=== PATIENT | female | born 1965 | race Caucasian/White ===

== ENCOUNTER → 2019-09-26 14:30 | Outpatient (CLI) | payer OTHER, SELFPAY ==
--- NOTE | ~2019-09-26 | DEXA_ITS ---
Bone Density Report Name: Rebekah Contreras Age: 54 Sex: Female Ethnicity: White Date of : 1965 Indication: postmenopausal; screening for osteoporosis; height loss; hysterectomy; rheumatoid arthritis; Referring Provider: NAYLA, VICTORIA Study: Bone densitometry was performed. Exam Date: September 26, 2019 Accession number: [id number] Bone Density: Region BMD T-score Z-score Classification AP Spine (L1-L4) 1.069 0.2 1.3 Normal Femoral Neck (Left) 0.847 0.0 1.0 Normal Total Hip (Left) 0.995 0.4 1.1 Normal Femoral Neck (Right) 0.862 0.1 1.2 Normal Total Hip (Right) 1.008 0.5 1.2 Normal Total Hip Mean 1.002 0.5 1.2 Normal World Health Organization criteria for BMD impression classify patients as: Normal (T-score at or above -1.0), Osteopenia (T-score between -1.0 and -2.5), or Osteoporosis (T-score at or below -2.5). 10-year Fracture Risk: FRAX not reported because: All T-scores for Spine Total, Hip Total, Femoral Neck at or above -1.0 Previous Exams: Region Exam Age BMD T-score BMD Change BMD Change Date g/cm2 vs Baseline vs Previous AP Spine(L1-L4) 09/26/2019 54 1.069 0.2 -0.095* -0.095* 09/19/2016 51 1.164 1.1 Total Hip(Left) 09/26/2019 54 0.995 0.4 -0.076* -0.076* 09/19/2016 51 1.071 1.1 Total Hip(Right) 09/26/2019 54 1.008 0.5 -0.071* -0.071* 09/19/2016 51 1.079 1.1 *Denotes significance at 95% confidence level, LSC for AP Spine = 0.022 g/cm2, LSC for Total Hip = 0.027 g/cm2 Clinical Information Provided by Patient: Has rheumatoid arthritis Has used the following medications: Vitamin D Has the following medical conditions: Hysterectomy Patient maximum height was 68.0 Menopause Age: 29 Drinks caffeinated beverages Onset of menses at age 12 Number of children 2 Impression: The patient has normal bone mass. The BMD for the AP Spine(L1-L4) decreased, changing by -0.095 since the last DXA exam. The BMD for the Total Hip(Left) decreased, changing by -0.076 since the last DXA exam. The BMD for the Total Hip(Right) decreased, changing by -0.071 since the last DXA exam. Discussion: BONE DENSITY IS ABOVE THE MINIMUM DESIRABLE LEVEL AT ALL SKELETAL SITES TESTED. This patient?s bone mineral density is above the minimum desirable level (T-score -1.0 or better) at all sites measured. The patient should follow a healthful lifestyle (good nutrition with adequate calcium
== END ==
PROVIDERS: PCP Physician Assistant; Visit Provider Nurse Practitioner
DX: Z78.0 Asymptomatic menopausal state (principal)
CPT/HCPCS: 77080

== ENCOUNTER 2019-11-27 16:33 | Outpatient (CLI) | payer OTHER, SELFPAY ==
--- NOTE | ~2019-11-27 | XR_ITS ---
EXAMINATION: XR chest 2V, XR ribs RT 2V EXAM DATE: 11/27/2019 17:11 INDICATION: Right lower rib pain. TECHNIQUE: Frontal projection of the upper right ribs, frontal projection of the lower right ribs, ob lique projection of the right ribs, frontal and lateral chest x-ray(s) for interpretation. Comparison is made to prior examination from 03/10/2017. FINDINGS: There are no displaced acute right rib fractures identified. There is no soft tissue abno rmality seen. No confluent consolidation, pneumothorax or pleural effusion suspected. Cardiomediastin al silhouette is normal. There are cholecystectomy clips. IMPRESSION: Unremarkable chest x-ray, right rib exam. Reviewed, dictated and finalized at location A. IMPRESSION: Unremarkable chest x-ray, right rib exam.
--- NOTE | ~2019-11-27 | XR_ITS ---
EXAMINATION: XR abdomen/kub 1V EXAM DATE: 11/27/2019 17:11 INDICATION: Right flank pain. TECHNIQUE: Frontal projection(s) of the abdomen for interpretation. Comparison is made to prior exami nation from 03/05/2009. FINDINGS: There is expected amount of colonic stool and gas. No small bowel dilation, nonobstructiv e bowel gas pattern. Calcifications in the pelvis are believed to be phleboliths. There is no orga nomegaly suspected. The bones are unremarkable. There are cholecystectomy clips. IMPRESSION: Unremarkable abdomen x-ray exam. Reviewed, dictated and finalized at location A.
== END 2019-11-27 16:34 | disposition home or self-care (01) ==
LOC: ANHIMG 16:44
PROVIDERS: PCP Physician Assistant; Visit Provider Physician Assistant
DX: R07.81 Pleurodynia (principal)
CPT/HCPCS: 71046; 71100; 74018

== ENCOUNTER 2020-02-15 17:05 | Outpatient (CLI) | payer OTHER, SELFPAY ==
--- NOTE | ~2020-02-15 | XR_ITS ---
XR hip BI 2V w AP pelvis 02/15/2020 17:53 Indication: Rheumatoid arthritis. Hip pain. Procedure: 3 views of each hip including AP pelvis Comparison: No prior studies for comparison. Findings: Mild symmetric osteoarthritis of the hips. No erosive changes. No fracture or traumatic mal alignment. Mild levoscoliosis of the lumbar spine. There is lower lumbar spondylosis. Sacral foramen are symmetric. Impression: 1: Bilateral symmetric osteoarthritis of the hips. Reviewed, dictated and finalized at location A. Impression: 1: Bilateral symmetric osteoarthritis of the hips.
--- NOTE | ~2020-02-15 | XR_ITS ---
XR hand BI arthritis min 3V 02/15/2020 17:52 INDICATION: Rheumatoid arthritis PROCEDURE: 4 views of each hand COMPARISON: No prior studies for comparison. FINDINGS: Fracture, dislocation or subluxation is not identified. No significant erosive change. The soft tissues appear within normal limits. No foreign bodies are identified. IMPRESSION: 1: NO SIGNIFICANT BONE OR JOINT ABNORMALITY IDENTIFIED. Reviewed, dictated and finalized at location A.
--- NOTE | ~2020-02-15 | XR_ITS ---
XR foot RT standing 2V, XR foot LT standing 2V 02/15/2020 17:53 (accession [id number]), 02/15/2020 17:52 (accession [id number]) Indication: Rheumatoid arthritis. Procedure: 2 views each foot Comparison: No prior studies for comparison. Findings: There is a small degenerative calcaneal enthesophyte at the plantar surface on the right. N o fracture, subluxation or dislocation. No erosive changes. Normal anatomic alignment. No focal soft tissue abnormality. No radiopaque foreign bodies. Impression: 1: No significant bone or joint abnormality. Reviewed, dictated and finalized at location A. Impression: 1: No significant bone or joint abnormality. Impression: 1: No significant bone or joint abnormality.
== END 2020-02-15 17:06 | disposition home or self-care (01) ==
LOC: ANHIMG 17:12
PROVIDERS: PCP Physician Assistant; Visit Provider Internal Medicine
DX: M06.09 Rheumatoid arthritis without rheumatoid factor, multiple sites (principal); M16.0 Bilateral primary osteoarthritis of hip
CPT/HCPCS: 73130; 73521; 73620

== ENCOUNTER 2020-02-19 07:07 | Outpatient (CLI) | payer OTHER, SELFPAY ==
[2020-02-19 07:38] LABS: Hematocrit 43.2 % (37.0-47.0); Hemoglobin 14.4 g/dL (12.0-15.0); Mean Corpuscular HGB Conc 33.3 g/dl (32-36); Mean Corpuscular Hemoglobin 29.4 pg (26-34); Mean Corpuscular Volume 88.3 fl (80-100); Mean Platelet Volume 9.2 fl (7.4-10.4); Platelet Count Result 276 k/mm3 (150-375); Red Blood Count 4.89 M/mm3 (4.2-5.4); White Blood Count 4.5 K/mm3 (4.5-10.0)
[2020-02-19 07:51] LABS: Alanine Aminotransferase 28 U/L (4-35); Albumin Level 4.4 g/dL (3.5-5.1); Alkaline Phosphatase 113 U/L (38-126); Aspartate Amino Transferase 26 U/L (14-36); Bilirubin,Total 0.4 mg/dL (0.2-1.3); Blood Urea Nitrogen 17 mg/dL (7-17); CRP < 0.5 mg/dL (<1.0); Calcium 10.1 mg/dL (8.4-10.2); Carbon Dioxide 27 mmol/L (22-30); Chloride 105 mmol/L (98-107); Estimated Glomerular Filt Rate > 60; Glucose 128 mg/dL (65-105); Sodium 140 mmol/L (137-145)
[2020-02-19 07:51] LABS: Add Urine Microscopic? YES; Appearance Urine Clear (Clear); Bilirubin Urine Negative (Negative); Blood Urine Trace-lysed (Negative); Color Urine Yellow (Yellow); Glucose Urine UA Negative (Negative); Ketones Urine Negative (Negative); Leukocyte Esterase Ur Negative LEU/UL (Negative); Nitrate Urine Negative (Negative); Protein Urine Negative (Negative); Specific Grav Ur >= 1.030 (1.001-1.035); Urobilinogen Urine 0.2 mg/dL (<2.0); pH Urine 5.5 (5.0-9.0)
[2020-02-19 07:53] LABS: Rheumatoid Factor < 8.6 IU/ML (<12)
[2020-02-19 07:59] LABS: Bacteria Urine Trace /hpf; Calcium Oxalate Crystals Urine Present /hpf; Mucus Urine Rare /lpf; RBC Urine 0-2 /hpf (0-2); Squamous Epithelial Cell Urine Rare /hpf (Few); WBC Urine 0-3 /hpf
[2020-02-19 08:35] LABS: Hepatitis B Surface Antigen Negative (Negative)
[2020-02-19 09:05] LABS: Hepatitis B Surface Anti Res Indeterminate; Hepatitis C Virus Antibody Negative (Negative)
[2020-02-22 09:37] LABS: ANA Cascade Screen Negative (Negative)
[2020-02-22 11:13] LABS: Anti Cyclic Citrullinated Pept <16 Units (<20)
[2020-02-22 21:34] LABS: NIL 0.02 IU/mL; Quantiferon TB Plus, 1T NEGATIVE (NEGATIVE); TB1-NIL 0.01 IU/mL; TB2-NIL 0.01 IU/mL
== END 2020-02-19 07:08 | disposition home or self-care (01) ==
PROVIDERS: PCP Physician Assistant; Visit Provider Internal Medicine
DX: M06.09 Rheumatoid arthritis without rheumatoid factor, multiple sites (principal); M19.90 Unspecified osteoarthritis, unspecified site
CPT/HCPCS: 36415; 80053; 81001; 85027; 86038; 86140; 86200; 86430; 86480; 86706; 86803; 87340

== ENCOUNTER 2020-02-19 17:11 | Outpatient (CLI) | payer OTHER, SELFPAY ==
[2020-02-23 03:17] LABS: Lupus dRVVT 1:1 Mix Interpreta Not Indicated; Lupus dRVVT Screen 27 sec (<=45); PTT-LA Screen 31 sec (<=40)
== END 2020-02-19 17:12 | disposition home or self-care (01) ==
PROVIDERS: PCP Physician Assistant; Visit Provider Internal Medicine
DX: M06.09 Rheumatoid arthritis without rheumatoid factor, multiple sites (principal)
CPT/HCPCS: 36415; 85613; 85730

== ENCOUNTER 2020-05-25 10:36 | Outpatient (CLI) | payer OTHER, SELFPAY ==
--- NOTE | ~2020-05-25 | CT_ITS ---
EXAMINATION:CT chest high resolution wo ms DATE: 05/25/2020 11:00 INDICATION: Dyspnea on exertion. TECHNIQUE: Computed tomography (CT) of the chest was performed without intravenous contrast. Automate d exposure control and iterative reconstruction technique were employed. The dose-length product (DLP ) was 236.91 mGy-cm. COMPARISON: CT abdomen and pelvis 11/23/2016 FINDINGS: The lungs demonstrate minimal atelectasis. There is a 3 mm nodule in right upper lobe. Ther e is a 5 mm nodule at minor fissure. No bronchiectasis or honeycombing. No pleural effusion. The hear t size is normal. No pericardial effusion. There is a small sliding hiatal hernia. There are changes of cholecystectomy. There is mild thoracic spondylosis. IMPRESSION: 1. Small pulmonary nodules, likely benign. 2. Small sliding hiatal hernia. Reviewed, dictated and finalized at location A. 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
== END 2020-05-25 10:37 | disposition home or self-care (01) ==
PROVIDERS: PCP Physician Assistant; Visit Provider Internal Medicine Cardiovascular Disease
DX: R06.09 Other forms of dyspnea (principal); R91.8 Other nonspecific abnormal finding of lung field; K44.9 Diaphragmatic hernia without obstruction or gangrene; M47.814 Spondylosis without myelopathy or radiculopathy, thoracic region
CPT/HCPCS: 71250

== ENCOUNTER 2020-05-28 19:10 | Emergency (ER) | payer OTHER, SELFPAY ==
--- NOTE | ~2020-05-28 | CT_ITS ---
EXAMINATION: CTA chest PE protocol DATE: 05/28/2020 23:36 INDICATION: Pleuritic chest pain, shortness of breath. TECHNIQUE: Computed tomography angiography (CTA) of the chest was performed with 100 mL Omnipaque-350 intravenous contrast timed to evaluate the pulmonary arteries. Coronal maximum intensity projection 3D-reconstructions were created by the technologist. Automated exposure control and iterative reconst ruction technique were employed. Exam dose: 417.65 mGy-cm total exam DLP. COMPARISON: 05/28/2020 PA and lateral chest 05/25/2020 CT chest high resolution scan FINDINGS: There is diagnostic contrast enhancement of the pulmonary arteries and no evidence of pulmo nary embolism. No thoracic aortic aneurysm or dissection. Normal heart size. No pericardial or pleural effusion. No pulmonary infiltrate or consolidation or pulmonary mass lesion is evident. Stable 5 mm nodule at minor fissure and 3 mm nodule in the right upper lobe compared to 05/25/2020. Normal morphology of the adrenal glands. Status post cholecystectomy. Included skeletal structures are unremarkable. IMPRESSION: No evidence of pulmonary embolism Reviewed, dictated and finalized at Location A. Reviewed, dictated and finalized at location A. 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
--- NOTE | ~2020-05-28 | XR_ITS ---
XR chest 2V DATE: 05/28/2020 21:46 INDICATION: Mid to left-sided chest pain, tingling of left arm. Some shortness of breath. TECHNIQUE: PA and lateral views COMPARISON: 05/25/2020 CT chest high resolution scan 11/26/2021 view chest FINDINGS: Normal heart size. No hilar or mediastinal mass lesion. No pulmonary infiltrate or consol idation, pulmonary vascular congestion or pleural effusion or pneumothorax. Thoracic spine dextroscoliosis, Status post cholecystectomy. IMPRESSION: No active cardiopulmonary disease Reviewed, dictated and finalized at location A. EKEEPING AND LAUNDRY TEAM LEADER
[2020-05-28 19:19] VITALS: BP 159/86; PULSE 78; RESP 18; TEMP 37; O2SAT 100
--- NOTE | 2020-05-28 19:26 | ECG_ITS ---
Measurements Intervals Reynolds Rate: 78 P: 52 IN: 154 QRS: 35 QRSD: 90 T: 48 QT: 367 QTc: 419 Interpretive Statements SINUS RHYTHM NONSPECIFIC ST & T-WAVE ABNORMALITY- LATERAL LEADS BASELINE ARTIFACT- I, II, AVL, V5 BORDERLINE ECG Electronically Signed On 05-29-2020 8:27:41 STOCK HANGER by Vinicius Carrington D.O.
[2020-05-28 19:40] LABS: Basophils Absolute Auto 0.1 K/mm3 (0.0-0.1); Basophils Percent Auto 0.8 % (0.2-1.2); Eosinophils Absolute Auto 0.1 K/mm3 (0-0.3); Eosinophils Percent Auto 1.8 % (0-4.4); Hematocrit 41.9 % (37.0-47.0); Hemoglobin 14.1 g/dL (12.0-15.0); Immature Granulocyte Absolute 0.01 K/mm3 (0.00-0.031); Immature Granulocyte Percent A 0.2 % (0-0.5); Lymphocytes Absolute Auto 2.16 K/mm3 (0.9-3.2); Lymphocytes Percent Auto 34.8 % (18.3-44.2); Mean Corpuscular HGB Conc 33.7 g/dl (32-36); Mean Corpuscular Hemoglobin 29.7 pg (26-34); Mean Corpuscular Volume 88.4 fl (80-100); Mean Platelet Volume 8.9 fl (7.4-10.4); Monocytes Absolute Auto 0.5 K/mm3 (0.1-0.6); Monocytes Percent Auto 7.7 % (2.6-8.5); Neutrophils Absolute Auto 3.4 K/mm3 (1.3-6.7); Neutrophils Percent Auto 54.7 % (45.5-73.1); Platelet Count Result 273 k/mm3 (150-375); Red Blood Count 4.74 M/mm3 (4.2-5.4); Red Cell Distribution Width 11.9 % (11.5-14.5); White Blood Count 6.2 K/mm3 (4.5-10.0)
[2020-05-28 19:50] LABS: Anion Gap 7 mmol/L (8-16); Blood Urea Nitrogen 15 mg/dL (7-17); Calcium 10.4 mg/dL (8.4-10.2); Carbon Dioxide 29 mmol/L (22-30); Chloride 103 mmol/L (98-107); Estimated CRCL calculation 100 ml/min; Estimated Glomerular Filt Rate > 60; Glucose 127 mg/dL (65-105); INR 0.8; Potassium 3.7 mmol/L (3.4-5.0); Prothrombin Time 12.1 Seconds (11.1-14.7); Sodium 139 mmol/L (137-145)
[2020-05-28 19:51] LABS: Partial Thromboplastin Time 27.2 SECONDS (22.3-36.8)
[2020-05-28 20:02] LABS: Troponin I < 0.012 ng/mL (0.000-0.034)
--- NOTE | 2020-05-28 23:05 | ED.CHESTPAIN ---
HPI - Chest Pain General Chief Complaint: Chest Pain Stated Complaint: chest pain Time Seen by Provider: 05/28/20 22:44 Source: patient Mode of arrival: ambulatory Limitations: no limitations History of Present Illness HPI narrative: This patient is a 54 year old female who presents for evaluation of left chest pain. This pain started around 5 pm while she was driving. This pain has been constant and gradually worsening. She also reports associated numbness to his left arm. The numbness is improving. She denies associated nausea, vomiting , dizziness or diaphoresis. THis pain is worse with movement of her arms and inspiration. She describes her pain has a soreness. 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 So and she reports a normal cardiac catheterization 3 years ago. Related Data Home Medications Medication Instructions Recorded Confirmed adalimumab [Humira(CF)] SUBCUT 05/28/20 ergocalciferol (vitamin D2) PO 05/28/20 hydrochlorothiazide PO 05/28/20 Allergies Allergy/AdvReac Type Severity Reaction Status Date / Time Penicillins Allergy Unknown Skin Verified 05/28/20 22:39 Reaction Review of Systems Review of Systems: All systems reviewed & are unremarkable except as noted in HPI and below Constitutional: Constitutional: Denies chills and Denies fever(s) Cardiovascular: Cardiovascular: Reports chest pain Respiratory: Respiratory: Denies cough and Reports dyspnea (chronioc) Gastrointestinal: Gastrointestinal: Denies abdominal pain and Denies nausea PMFSH Past Medical History Medical History (Updated 05/29/20 @ 00:06 by Angie Hill MD) Hypertension Rheumatoid arthritis Social History Social History (Updated 05/29/20 @ 05:02 by Angie Hill MD) Smoking status: Never smoker Exam Const: General: no acute distress and alert Orientation/consciousness: patient oriented x3 HENMT: Head: atraumatic Face and sinus: face symmetric Eyes: EOM: EOMs intact bilaterally Neck: Neck: normal visual inspection Chest: Chest palpation & inspection: tenderness sternum Resp: Effort & Inspection: normal respiratory effort and no retractions Auscultation: clear to auscultation bilaterally Cardio: Rate: regular rate Rhythm: regular rhythm Heart sounds: no murmurs Other: bilateral palpable radial pulses and bilateral pedal pulses GI: GI Palp: Yes Soft to palpation, No Tenderness to palpation present (GI), No Guarding due to palpation present (GI) and No Rigid due to palpation Auscultation: normal bowel sounds Skin: General skin exam: normal color Rashes: no rashes Neuro: General: patient oriented x3, moves all extremities, no focal motor deficits and CN's II-XI intact bilaterally Speech: normal speech Gait exam (Neuro): Normal gait present Extrem: General: no pedal edema Psych: Appearance: grossly normal and well kempt Mental Status: mental status grossly normal Affect: normal affect Course Reevaluation(s) Date: 05/29/20 Time: 00:01 Consultations Consultation #1: I discussed case with Dr. Deras that patient's has heart score of 4 but pain seems more muscular and she had normal catheterization 3 years ago. PAtient would like to go home and follow up instead of admission. SHe agrees this seems reasonable. They will contact patient tomorrow. Date: 05/29/20 Time: 00:03 Vital Signs Vital signs: Vital Signs Temperature 98.6 F 05/28/20 19:19 Pulse Rate 78 05/28/20 19:19 Respiratory Rate 18 05/28/20 19:19 Blood Pressure 159/86 H 05/28/20 19:19 Pulse Oximetry 100 05/28/20 19:19 Temperature 97.9 F 05/29/20 00:13 Pulse Rate 68 05/29/20 00:13 Respiratory Rate 16 05/29/20 00:13 Blood Pressure 134/89 05/29/20 00:13 Pulse Oximetry 98 05/29/20 00:13 MDM - Chest Pain Lab Data Attestation: I reviewed the patient's lab results. Result diagrams: 05/28/20 19:30 05/28/20 19:30 Labs: Lab Results 05/28/2005/28
[2020-05-28] MEDS: ASPIRIN 81 MG CHEWABLE TABLET 324 MG PO (23:22)
[2020-05-28 23:30] LABS: Troponin I < 0.012 ng/mL (0.000-0.034)
[2020-05-29 00:13] VITALS: BP 134/89; PULSE 68; RESP 16; TEMP 36.6; O2SAT 98
== END 2020-05-29 00:14 | disposition home or self-care (01) ==
PROVIDERS: Emergency Medicine; Emergency Provider General Practice; PCP Physician Assistant
DX: R07.89 Other chest pain (principal); I10 Essential (primary) hypertension; M06.9 Rheumatoid arthritis, unspecified
CPT/HCPCS: 36415; 71046; 71275; 80048; 84484; 85025; 85610; 85730; 93005; 99284; A9270; Q9967

== ENCOUNTER 2020-07-18 09:37 | Outpatient (CLI) | payer OTHER, SELFPAY ==
--- NOTE | 2020-07-18 11:31 | WPDPFTINT ---
PFT Interpretation Full pulmonary function testing 07/18/2020 1. Flows appear satisfactory. FEV1 is 2.39 L / 96%.pred. 2. Volumes appear satisfactory with TLC 6.91/135% pred. 3. Diffusing capacity appears satisfactory. 4. Following inhaled bronchodilator, there is little objective change. This is a normal pulmonary function test. Alexandre Hernandez MD MSc FACP FCCP
== END 2020-07-18 09:38 | disposition home or self-care (01) ==
LOC: ANHPFT 09:38
PROVIDERS: PCP Physician Assistant; Visit Provider Physician Assistant
DX: R06.09 Other forms of dyspnea (principal)
CPT/HCPCS: 94060; 94726; 94729

== ENCOUNTER 2020-08-17 07:36 | Outpatient (CLI) | payer OTHER, SELFPAY ==
--- NOTE | ~2020-08-17 | US_ITS ---
EXAMINATION: US soft tissue upper back DATE: 08/17/2020 09:07 INDICATION: Paraspinal lump/palpable area at the right mid back TECHNIQUE: Multiple grayscale and Doppler ultrasound images of the region of concern at the mid right back were obtained. COMPARISON: Chest CT angiogram dated 05/28/2020 FINDINGS: Normal appearance to the subcutaneous fat and underlying musculature at the region of concern. No abn ormal masses or fluid collections identified on either the ultrasound images are prior CT . There is minimal asymmetry to the left and right trapezius muscles with the right appearing slightly thicker a t the lower thorax and on the left extending to insert one vertebral segment more caudally and this m ight account for the suggestion of an asymmetric right-sided lump. IMPRESSION: 1. No abnormal masses or fluid collections identified on either ultrasound or CT. As detailed above t he palpable abnormality may be related to negligible asymmetry to the inferior trapezius muscles whic h is likely of no clinical significance. Reviewed, dictated and finalized at location A. O INSPECTOR IMPRESSION: 1. No abnormal masses or fluid collections identified on either ultrasound or C T. As detailed above the palpable abnormality may be related to negligible asym metry to the inferior trapezius muscles which is likely of no clinical signific ance.
--- NOTE | ~2020-08-17 | MR_ITS ---
EXAMINATION: MR brain/brain stem wo/w con DATE: 08/17/2020 08:52 INDICATION: Poor short-term memory TECHNIQUE: Magnetic resonance imaging (MRI) of the brain and brainstem was performed without and with 17 mL Multihance intravenous contrast. Sequences included sagittal and axial T1-weighted FLAIR, axia l T1-weighted FSE, axial diffusion-weighted FS EPI, sagittal T2-weighted FLAIR, axial T2*-weighted GR E, axial T2-weighted FLAIR Propeller, and axial T2-weighted Propeller. Postcontrast sequences include d axial, coronal, and sagittal T1-weighted FSE. Apparent diffusion coefficient (ADC) maps were create d. COMPARISON: None. FINDINGS: There are no areas of restricted diffusion to suggest acute infarction. No intracranial hemorrhage or abnormal intracranial mass lesion. There are approximately 11 juxtacortical foci of white matter T2- weighted signal hyperintensity in the brain. There is mild periventricular white matter T2 hyperinten sity with suggestion of very subtle radial extensive white matter hyperintensity in the pericallosal white matter which are too indistinct to be numerically quantitated. There are no infratentorial lesi ons. None of the lesions enhance. There are no intraparenchymal signal abnormalities seen on the othe r pulse sequences. The ventricles are symmetric and normal in size. There are no abnormal extra-axial fluid collections. Flow voids are seen in the cerebral arteries on the T2-weighted sequences consist ent with their expected patency. The left vertebral artery is dominant. Mucous retention cyst in the bilateral maxillary sinuses. Visualized orbits and soft tissues are unremarkable. There are no areas of abnormal enhancement on the post contrast images. IMPRESSION: 1. Multiple tiny foci of nonspecific white matter T2 hyperintensity both in the juxtacortical white m atter as well as in the periventricular white matter and this could represent either sequela of chron ic small vessel ischemic disease or multiple sclerosis. 2. No acute intracranial process or abnormally enhancing lesions. Reviewed, dictated and finalized at location A. STREAM BIOMANUFACTURING TECHNICIAN IMPRESSION: 1. Multiple tiny foci of nonspecific white matter T2 hyperintensity both in the juxtacortical white matter as well as in the periventricular white matter and this could represent either sequela of chronic small vessel ischemic disease or multiple sclerosis. 2. No acute intracranial process or abnormally enhancing lesions.
[2020-08-17 08:14] LABS: Estimated Glomerular Filt Rate > 60
== END 2020-08-17 07:37 | disposition home or self-care (01) ==
PROVIDERS: PCP Physician Assistant; Visit Provider Physician Assistant
DX: R41.3 Other amnesia (principal); R93.0 Abnormal findings on diagnostic imaging of skull and head, not elsewhere classified
CPT/HCPCS: 70553; 76604; A9577

== ENCOUNTER → 2020-11-19 17:03 | Outpatient (CLI) | payer OTHER, SELFPAY ==
--- NOTE | ~2020-11-19 | MM_ITS ---
EXAMINATION: MM screening leidy BI w ninoska HISTORY: Screening TECHNIQUE: Craniocaudal and mediolateral oblique 3-D tomosynthesis images were obtained and synthetic 2-D images were generated. CAD analysis was submitted and interpreted. COMPARISON: Comparison to multiple prior studies sequentially, with oldest reviewed study dated 04/20. BREAST PARENCHYMAL COMPOSITION: The breasts are heterogenously dense, which may obscure small masses FINDINGS: There is no evidence of suspicious mass, calcification, or architectural distortion to sugg est malignancy in either breast. There has been no suspicious interval change. IMPRESSION: 1. No mammographic evidence of malignancy. 2. Recommend routine screening mammography in one year. BI-RADS Category 1: Negative Reviewed, dictated and finalized at location A.
== END ==
PROVIDERS: Visit Provider Nurse Practitioner
DX: Z12.31 Encounter for screening mammogram for malignant neoplasm of breast (principal)
CPT/HCPCS: 77063; 77067

== ENCOUNTER 2021-07-14 13:33 | Outpatient (CLI) | payer OTHER, SELFPAY ==
--- NOTE | ~2021-07-14 | CT_ITS ---
EXAMINATION:CT diagnostic chest wo con DATE: 07/14/2021 13:58 INDICATION: Pulmonary nodules. TECHNIQUE: Computed tomography (CT) of the chest was performed without intravenous contrast. Automate d exposure control and iterative reconstruction technique were employed. The dose-length product (DLP ) was 187.31 mGy-cm. COMPARISON: Chest CT 05/28/2020 FINDINGS: The lungs demonstrate mild atelectasis. There is a 5 mm nodule in right middle lobe. There is a 4 mm nodule in right upper lobe. No pleural effusion. The heart size is normal. No pericardial e ffusion. There is a small sliding hiatal hernia. There are changes of cholecystectomy. There is mild thoracic spondylosis. IMPRESSION: 1. Stable small pulmonary nodules, likely benign. Reviewed, dictated and finalized at location B. 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
== END 2021-07-14 13:34 | disposition home or self-care (01) ==
PROVIDERS: PCP Internal Medicine; Visit Provider Internal Medicine
DX: R91.8 Other nonspecific abnormal finding of lung field (principal)
CPT/HCPCS: 71250

== ENCOUNTER 2021-09-16 14:05 | Outpatient (CLI) | payer OTHER, SELFPAY ==
--- NOTE | ~2021-09-16 | US_ITS ---
EXAMINATION: US pelvic complete w TV DATE: 09/16/2021 14:48 INDICATION: Abnormal cytologic findings from the cervix Comparison:No prior studies for comparison. TECHNIQUE: Multiple transabdominal and endovaginal sonographic images of the pelvis performed. FINDINGS: The uterus and ovaries are not visualized, likely surgically absent. There is no free fluid in the pelvis. There are no abnormal masses seen on either side. IMPRESSION: 1. Unremarkable pelvic ultrasound post hysterectomy. No abnormal pelvic masses or fluid collections. Reviewed, dictated and finalized at location A. 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
== END 2021-09-16 14:06 | disposition home or self-care (01) ==
LOC: ANHIMG 14:08
PROVIDERS: PCP Internal Medicine; Visit Provider Obstetrics & Gynecology Gynecology
DX: R87.619 Unspecified abnormal cytological findings in specimens from cervix uteri (principal)
CPT/HCPCS: 76830; 76856

== ENCOUNTER → 2021-09-17 09:50 | Outpatient (CLI) | payer OTHER, SELFPAY ==
--- NOTE | ~2021-09-17 | MMUS_ITS ---
EXAMINATION: MM diagnostic leidy LT w ninoska, US breast LT limited HISTORY: Left breast pain TECHNIQUE: Craniocaudal, mediolateral, and mediolateral oblique 3-D tomosynthesis images of the left breast were performed and synthetic 2-D images were generated. CAD analysis was submitted and interpr eted. High resolution limited left breast ultrasound was performed. COMPARISON: 11/19/2020, 09/19/2016, 05/28/2014, 05/18/2014 BREAST PARENCHYMAL COMPOSITION: The breasts are heterogeneously dense, which may obscure small masses . FINDINGS: MAMMOGRAPHIC FINDINGS: There is no evidence of suspicious mass, calcification, or architectural distortion to suggest malign antione. No mammographic correlate is identified for the patient's reported left breast pain. There has been no suspicious interval change. ULTRASOUND: There is no evidence of focal abnormal solid or cystic mass in the vicinity of the patient's left wanda ast pain. IMPRESSION: 1. No specific mammographic or sonographic correlate is identified for the reported palpable abnormal ity of concern. Further evaluation at this time should be based on clinical assessment. Continued fol low-up physical examination is recommended. 2. Recommend routine screening mammography, due on the right in November. BI-RADS Category 1: Negative Reviewed, dictated and finalized at location A. ERY SUPERVISOR IMPRESSION: 1. No specific mammographic or sonographic correlate is identified for the repo rted palpable abnormality of concern. Further evaluation at this time should be based on clinical assessment. Continued follow-up physical examination is rachael mmended. 2. Recommend routine screening mammography, due on the right in November. BI-RADS Category 1: Negative
== END ==
PROVIDERS: PCP Internal Medicine; Visit Provider Nurse Practitioner
DX: N64.4 Mastodynia (principal)
CPT/HCPCS: 76642; 77061; 77065; G0279

== ENCOUNTER → 2021-12-08 10:11 | Outpatient (CLI) | payer OTHER, SELFPAY ==
--- NOTE | ~2021-12-08 | MM_ITS ---
EXAMINATION: MM screening leidy RT w ninoska HISTORY: Screening mammogram TECHNIQUE: Craniocaudal and mediolateral oblique 3-D tomosynthesis images were obtained and synthetic 2-D images were generated. CAD analysis was submitted and interpreted. COMPARISON: 11/19/2020, 09/19 or and she is very supportive of the technologist measuring or along the dorsal base of the bile or Reviewed planes or /2017 bilateral screening mammogram examinations BREAST PARENCHYMAL COMPOSITION: There is heterogeneously dense breast tissue, which may obscure small masses. FINDINGS: There is no evidence of suspicious mass, calcification, or architectural distortion to sugg est malignancy in either breast. There has been no suspicious interval change. IMPRESSION: 1. No mammographic evidence of malignancy. 2. Recommend routine screening mammography in one year. BI-RADS Category 1: Negative Reviewed, dictated and finalized at location A.
== END ==
PROVIDERS: PCP Internal Medicine; Visit Provider Nurse Practitioner
DX: Z12.31 Encounter for screening mammogram for malignant neoplasm of breast (principal)
CPT/HCPCS: 77063; 77067

== ENCOUNTER 2022-07-07 12:29 | Outpatient (CLI) | payer OTHER, SELFPAY ==
--- NOTE | ~2022-07-07 | CT_ITS ---
CT Scan of the Chest without Contrast: Clinical Indication: Pulmonary nodule Technique: Contiguous sections were acquired throughout the chest without intravenous contrast. Dose reduction technique was used on this scan by utilizing automated exposure control and iterative recon struction technique. The dose-length product (DLP) was 101.34 mGy-cm. COMPARISON: 07/14/2021 Findings: There is no evidence of any significant mediastinal, hilar or axillary lymphadenopathy. The mediastin al soft tissues appear normal. There is no evidence of pleural or pericardial effusion. Stable subcentimeter subpleural nodules in the right upper and middle lobes (axial images 58, 78). No new pulmonary nodule. Images through the upper abdomen reveal no abnormalities. Impression: Stable subcentimeter pulmonary nodules, as detailed above. Reviewed, dictated and finalized at location . ARAT DEALER Impression: Stable subcentimeter pulmonary nodules, as detailed above.
== END 2022-07-07 12:30 | disposition home or self-care (01) ==
PROVIDERS: PCP Internal Medicine; Visit Provider Internal Medicine
DX: R91.1 Solitary pulmonary nodule (principal)
CPT/HCPCS: 71250

== ENCOUNTER → 2022-11-23 09:31 | Outpatient (CLI) | payer OTHER, SELFPAY ==
--- NOTE | ~2022-11-23 | MMUS_ITS ---
EXAMINATION: MM diagnostic leidy RT w ninoska, US breast RT limited HISTORY: Palpable lump in the upper outer quadrant of the right breast TECHNIQUE: Craniocaudal, mediolateral, and mediolateral oblique 3-D tomosynthesis images of the right breast were performed and synthetic 2-D images were generated. CAD analysis was submitted and interp reted. High resolution limited right breast ultrasound was performed. COMPARISON: 12/08/2021, 11/19/2020, 09/19/2016 BREAST PARENCHYMAL COMPOSITION: The breasts are heterogeneously dense, which may obscure small masses . FINDINGS: MAMMOGRAPHIC FINDINGS: No suspicious mass, calcification, or architectural distortion are identified to suggest malignancy. There has been no suspicious interval change. No mammographic correlate is identified for the reporte d palpable abnormality of concern. ULTRASOUND: There is no evidence of focal abnormal solid or cystic mass in the vicinity of the reported palpable abnormality of concern. There is a 5 mm x 4 mm oval, circumscribed, parallel, hypoechoic mass with no posterior features or internal vascularity at the 9:00 location 4 cm from the nipple. IMPRESSION: 1. No specific mammographic or sonographic correlate is identified for the reported palpable abnormal ity of concern. Further evaluation at this time should be based on clinical assessment. Continued fol low-up physical examination is recommended. Probably benign mass at the 9:00 location 4 cm from the n ipple. 2. Recommend 6 month follow-up right breast ultrasound. BI-RADS category 3, probably benign findings. Reviewed, dictated and finalized at location A. IMPRESSION: 1. No specific mammographic or sonographic correlate is identified for the repo rted palpable abnormality of concern. Further evaluation at this time should be based on clinical assessment. Continued follow-up physical examination is rachael mmended. Probably benign mass at the 9:00 location 4 cm from the nipple. 2. Recommend 6 month follow-up right breast ultrasound. BI-RADS category 3, probably benign findings.
== END ==
PROVIDERS: PCP Internal Medicine; Visit Provider Nurse Practitioner
DX: N63.41 Unspecified lump in right breast, subareolar (principal)
CPT/HCPCS: 76642; 77061; 77065; G0279

== ENCOUNTER 2023-04-28 12:32 | Outpatient (CLI) | payer OTHER, SELFPAY ==
--- NOTE | ~2023-04-28 | XR_ITS ---
AP view of the pelvis and AP and lateral views of the lateral hip Clinical history: Pain Findings: No acute fracture or dislocation is seen. There is probable moderate degenerative change of the left hip joint, with mild joint space narrowing and some are cystic change in the left acetabulu m. There is minimal degenerative change at the right hip joint.. Soft tissues are unremarkable. Impression: Moderate degenerative change of the left hip joint. Minimal degenerative change of the right hip joint. Reviewed, dictated and finalized at location M. Impression: Moderate degenerative change of the left hip joint. Minimal degenerative change of the right hip joint.
== END 2023-04-28 12:33 | disposition home or self-care (01) ==
LOC: ANHIMG 12:36
PROVIDERS: PCP Internal Medicine; Visit Provider Internal Medicine
DX: M16.0 Bilateral primary osteoarthritis of hip (principal)
CPT/HCPCS: 73521

== ENCOUNTER 2023-06-18 10:55 | Outpatient (CLI) | payer OTHER, SELFPAY ==
--- NOTE | ~2023-06-18 | MR_ITS ---
EXAMINATION: MR hip LT wo con DATE: 06/18/2023 12:03 INDICATION: Left hip arthritis with left hip pain TECHNIQUE: Magnetic resonance imaging (MRI) of the left hip was performed without intravenous contra st. Sequences included full-field axial PD-weighted FS FSE and T1-weighted FSE, coronal of the pelvis with PD-weighted FS FSE, T2-weighted FSE and T1-weighted FSE, small field of view of the left hip w ith axial PD-weighted FS FSE, sagittal PD-weighted FS FSE, coronal PD-weighted FS FSE and coronal T2 weighted FSE. Additional radial T1-weighted FGR oriented orthogonal to the acetabular rim were obtai nini for evaluation of the labrum. COMPARISON: Radiographs dated 04/28/2023 FINDINGS: Bones/labrum/cartilage: Alignment is normal. No fracture, avascular necrosis or pathologic marrow replacing process. There i s moderate to severe osteoarthritis at the left hip with full/near full-thickness cartilage loss lilian g the anterior to superior aspect of the acetabulum with underlying edema-like and mild cystlike angelo ges. Additional deep chondral ulceration along the anterior superior aspect of the humeral head but w ithout degenerative subchondral changes. Degenerative tearing of the anterior to anterosuperior and p osterior to posterior superior glenoid labrum relatively sparing the superolateral labrum. Although n ot diagnostically evaluated on the larger [id number] imaging there is mild to moderate osteoarthri tis at the right hip with high-grade chondromalacia with subarticular cystlike change at the anterosu perior right acetabulum. There is also mild osteoarthritis at the bilateral sacroiliac joints. Severe disc height loss at L5-S1 and moderate to severe bilateral facet osteoarthritis in the visualized lo wer lumbar spine. Fluid: Moderate-sized left hip joint effusion with synovitis. Physiologic amount fluid at the right hip join t. No other abnormal fluid collections. Soft tissues: Small region of focal fat within the proximal right rectus femoris muscle belly which could represent either an intramuscular lipoma or focal atrophy related to prior trauma. Otherwise normal and symmet jak muscle bulk and signal in the pelvis and visualized proximal thighs. The iliopsoas, gluteal and p roximal hamstring tendons are normal. The uterus is not identified and has likely been surgically res ected. Limited evaluation of visceral organs of the pelvis is otherwise unremarkable. No pathologica lly enlarged pelvic/inguinal lymphadenopathy. IMPRESSION: 1. Moderate to severe left hip osteoarthritis with associated degenerative tearing of the labrum and moderate-sized joint effusion. 2. Mild to moderate right hip osteoarthritis with high-grade chondromalacia at the anterosuperior rig ht acetabulum. 3. Moderate to severe lower lumbar facet osteoarthritis with severe disc height loss at L5-S1. Reviewed, dictated and finalized at location A. ICER IMPRESSION: 1. Moderate to severe left hip osteoarthritis with associated degenerative tear ing of the labrum and moderate-sized joint effusion. 2. Mild to moderate right hip osteoarthritis with high-grade chondromalacia at the anterosuperior right acetabulum. 3. Moderate to severe lower lumbar facet osteoarthritis with severe disc height loss at L5-S1.
== END 2023-06-18 10:56 | disposition home or self-care (01) ==
DX: M16.0 Bilateral primary osteoarthritis of hip (principal)
CPT/HCPCS: 73721

== ENCOUNTER → 2023-06-22 10:24 | Outpatient (CLI) | payer OTHER, SELFPAY ==
--- NOTE | ~2023-06-22 | DEXA_ITS ---
Bone Density Report Name: MAKENZIE GONZALES Age: 57 Sex: Female Ethnicity: White Date of : 1965 Indication: postmenopausal; screening for osteoporosis; height loss; hysterectomy; rheumatoid arthritis; Referring Provider: KhrisTyler Study: Bone densitometry was performed. Exam Date: June 22, 2023 Accession number: [id number] Bone Density: Region BMD T-score Z-score Classification AP Spine (L1-L4) 1.010 -0.3 1.0 Normal Femoral Neck (Left) 0.769 -0.7 0.5 Normal Total Hip (Left) 0.849 -0.8 0.1 Normal Femoral Neck (Right) 0.833 -0.1 1.1 Normal Total Hip (Right) 0.957 0.1 1.0 Normal Total Hip Mean 0.903 -0.4 0.6 Normal World Health Organization criteria for BMD impression classify patients as: Normal (T-score at or above -1.0), Osteopenia (T-score between -1.0 and -2.5), or Osteoporosis (T-score at or below -2.5). 10-year Fracture Risk: FRAX not reported because: All T-scores for Spine Total, Hip Total, Femoral Neck at or above -1.0 Previous Exams: Region Exam Age BMD T-score BMD Change BMD Change Date g/cm2 vs Baseline vs Previous AP Spine(L1-L4) 06/22/2023 57 1.010 -0.3 -0.155* -0.059* 09/26/2019 54 1.069 0.2 -0.095* -0.095* 09/19/2016 51 1.164 1.1 Total Hip(Left) 06/22/2023 57 0.849 -0.8 -0.222* -0.146* 09/26/2019 54 0.995 0.4 -0.076* -0.076* 09/19/2016 51 1.071 1.1 Total Hip(Right) 06/22/2023 57 0.957 0.1 -0.123* -0.051* 09/26/2019 54 1.008 0.5 -0.071* -0.071* 09/19/2016 51 1.079 1.1 *Denotes significance at 95% confidence level, LSC for AP Spine = 0.022 g/cm2, LSC for Total Hip = 0.027 g/cm2 Clinical Information Provided by Patient: Has rheumatoid arthritis Has used the following medications: Vitamin D Has the following medical conditions: Hysterectomy Patient maximum height was 68.0 Menopause Age: 29 Drinks caffeinated beverages Onset of menses at age 12 Number of children 2 Impression: The patient has normal bone mass. The BMD for the AP Spine(L1-L4) decreased, changing by -0.059 since the last DXA exam. The BMD for the Total Hip(Left) decreased, changing by -0.146 since the last DXA exam. The BMD for the Total Hip(Right) decreased, changing by -0.051 since the last DXA exam. Discussion: BONE DENSITY IS ABOVE THE MINIMUM DESIRABLE LEVEL AT ALL SKELETAL SITES TESTED. This patient?s bone
== END ==
PROVIDERS: PCP Obstetrics & Gynecology Gynecology; Visit Provider Internal Medicine
DX: Z78.0 Asymptomatic menopausal state (principal); M25.551 Pain in right hip; M25.552 Pain in left hip
CPT/HCPCS: 77080

== ENCOUNTER 2023-10-29 19:17 | Emergency (ER) | payer OTHER, SELFPAY ==
[2023-10-29 19:19] VITALS: BP 167/71; PULSE 97; RESP 16; TEMP 36.6; O2SAT 100
--- NOTE | 2023-10-29 19:48 | ED.GENADULT ---
HPI - General Adult General Chief complaint: Extremity Problem,Nontraumatic Stated complaint: hip surgery leg swelling Time Seen by Provider: 10/29/23 19:31 History of Present Illness HPI narrative: 58 yo female presents for LLE edema 1 week prior to having a hip replacement. Related Data Home Medications Medication Instructions Recorded Confirmed cholecalciferol (vitamin D3) 1,250 50,000 unit PO WEEKLY 10/10/19 08/05/20 mcg (50,000 unit) capsule hydrochlorothiazide 12.5 mg capsule 12.5 mg PO DAILY 10/10/19 08/05/20 adalimumab 40 mg/0.4 mL subcut 05/28/20 08/05/20 subcutaneous syringe kit (Humira(CF)) ergocalciferol (vitamin D2) 1,250 PO 05/28/20 08/05/20 mcg (50,000 unit) capsule hydrochlorothiazide 12.5 mg tablet PO 05/28/20 08/05/20 Allergies Allergy/AdvReac Type Severity Reaction Status Date / Time folic acid Allergy Severe Rash Verified 08/05/20 13:26 Penicillins Allergy Mild Rash Verified 08/05/20 13:26 methotrexate Allergy Unknown Rash Verified 08/05/20 13:26 Sulfa (Sulfonamide Allergy Unknown Rash Verified 08/05/20 13:26 Antibiotics) Review of Systems Review of Systems: 10 point ros is negative PMFSH Past Medical History Medical History Acute arthritis Chest pain on exertion (~04/2011) Counseling on health promotion and disease prevention Hypertension Rheumatoid arthritis Shortness of breath Surgical History Surgical History Delivery by section H/O: hysterectomy H/O: myomectomy History of tonsillectomy Hx of cholecystectomy Hx of knee surgery Family History Family History Mother Alzheimer disease Grandparent Heart disease Grandparent Colon cancer Social History Social History Smoking status: Never smoker Alcohol intake: current Exam Narrative: gen nad cardiac rrr lungs cta skin-no rashes ext-BLE edema L>R Course Vital Signs Vital signs: Vital Signs Temperature 97.8 F 10/29/23 19:19 Pulse Rate 97 10/29/23 19:19 Respiratory Rate 16 10/29/23 19:19 Blood Pressure 167/71 H 10/29/23 19:19 Pulse Oximetry 100 10/29/23 19:19 Oxygen Delivery Room Air 10/29/23 19:19 Temperature 97.8 F 10/29/23 19:19 Pulse Rate 97 10/29/23 19:19 Respiratory Rate 16 10/29/23 19:19 Blood Pressure 167/71 H 10/29/23 19:19 Pulse Oximetry 100 10/29/23 19:19 Oxygen Delivery Room Air 10/29/23 19:19 Medical Decision Making MDM Narrative Medical decision making narrative: BLE venous doppler with no dvt Vital Signs Vital Signs: Vital Signs Temperature 97.8 F 10/29/23 19:19 Pulse Rate 97 10/29/23 19:19 Respiratory Rate 16 10/29/23 19:19 Blood Pressure 167/71 H 10/29/23 19:19 Pulse Oximetry 100 10/29/23 19:19 Oxygen Delivery Room Air 10/29/23 19:19 Temperature 97.8 F 10/29/23 19:19 Pulse Rate 97 10/29/23 19:19 Respiratory Rate 16 10/29/23 19:19 Blood Pressure 167/71 H 10/29/23 19:19 Pulse Oximetry 100 10/29/23 19:19 Oxygen Delivery Room Air 10/29/23 19:19 Discharge Plan Discharge Clinical Impression: Lower extremity edema Patient Disposition: Home, Self-Care Condition: Stable Instructions: Antibiotic Form Additional Instructions: Please follow-up for an ultrasound of both of her legs tomorrow morning. Prescriptions: No Action hydrochlorothiazide 12.5 mg capsule 12.5 mg PO DAILY cholecalciferol (vitamin D3) 1,250 mcg (50,000 unit) capsule 50,000 unit PO WEEKLY ergocalciferol (vitamin D2) 1,250 mcg (50,000 unit) capsule PO hydrochlorothiazide 12.5 mg tablet PO Humira(CF) 40 mg/0.4 mL syringe kit SUBCUT Humira(CF) Pen 40 mg/0.4 mL pen injector kit See Rx Instruction
[2023-10-29] MEDS: ENOXAPARIN 80 MG/0.8 ML SYRINGE SUB-Q (19:53)
== END 2023-10-29 20:07 | disposition home or self-care (01) ==
LOC: ANHED 19:48
PROVIDERS: Emergency Provider Emergency Medicine; PCP Internal Medicine
DX: R60.0 Localized edema (principal); M19.90 Unspecified osteoarthritis, unspecified site; I10 Essential (primary) hypertension; M06.9 Rheumatoid arthritis, unspecified; Z96.642 Presence of left artificial hip joint; Z90.710 Acquired absence of both cervix and uterus; Z90.49 Acquired absence of other specified parts of digestive tract
CPT/HCPCS: 96372; 99283; J1650

== ENCOUNTER 2023-10-30 07:14 | Outpatient (CLI) | payer OTHER, SELFPAY ==
--- NOTE | ~2023-10-30 | US_ITS ---
EXAMINATION: US venous doppler [facility] DATE: 10/30/2023 08:02 INDICATION: Left lower limb pain and swelling TECHNIQUE: Grayscale ultrasound images without and with compression and Doppler ultrasound images of the bilateral lower extremity veins were obtained. COMPARISON: None. FINDINGS: The visualized portions of right common femoral vein, profunda (deep) femoral vein, femoral vein, pop liteal vein, tibioperoneal trunk, gastrocnemius vein and greater saphenous vein outflow are patent. The visualized portions of left common femoral vein, profunda femoral vein, femoral vein, popliteal v ein, tibioperoneal trunk, gastrocnemius vein and greater saphenous vein outflow are patent. IMPRESSION: 1. No deep venous thrombosis in either lower limb. Reviewed, dictated and finalized at location A.
== END 2023-10-30 07:15 | disposition home or self-care (01) ==
LOC: ANHIMG 07:17
PROVIDERS: PCP Internal Medicine; Visit Provider Emergency Medicine
DX: R60.9 Edema, unspecified (principal)
CPT/HCPCS: 93970

== ENCOUNTER 2024-01-19 16:01 | Outpatient (CLI) | payer OTHER, SELFPAY ==
--- NOTE | ~2024-01-19 | XR_ITS ---
XR foot LT min 3V Ordering provider: Tyler Pinedo, History: . Left foot pain . Comparison: None. FINDINGS: BONES: No acute fracture or dislocation. Sclerotic area in the midshaft of the proximal phalanx of th e second toe. JOINT SPACES: Normal. No tarsal coalition. SOFT TISSUES: Normal. IMPRESSION: No acute osseous abnormality left foot. Reviewed, dictated and finalized at location A.
== END 2024-01-19 16:02 ==
PROVIDERS: PCP Internal Medicine; Visit Provider Internal Medicine
DX: M79.672 Pain in left foot (principal)
CPT/HCPCS: 73630

== ENCOUNTER 2024-01-24 08:41 | Emergency (ER) | payer OTHER, SELFPAY ==
--- NOTE | ~2024-01-24 | XR_ITS ---
AP and lateral views of the left tibia/fibula Clinical History: Pain Findings: No acute fracture or dislocation is seen. Suspected chronic, healed fracture deformity of t he mid fibular shaft. Osseous alignment is anatomic. There is moderate tricompartmental osteoarthriti s of the knee, with extensive osteophyte formation. Joint spaces of the tibiotalar joint are intact. Soft tissues are unremarkable. Impression: No acute abnormality. Possible chronic healed fracture deformity of the mid fibular shaft. Moderate tricompartmental osteoarthritis of the knee. Reviewed, dictated and finalized at location M. Impression: No acute abnormality. Possible chronic healed fracture deformity of the mid fibular shaft. Moderate tricompartmental osteoarthritis of the knee.
--- NOTE | ~2024-01-24 | US_ITS ---
EXAMINATION: US venous doppler [facility] DATE: 01/24/2024 09:59 INDICATION: Left lower limb pain, erythema and swelling TECHNIQUE: Grayscale ultrasound images without and with compression and Doppler ultrasound images of the left lower extremity veins were obtained. COMPARISON: None. FINDINGS: The visualized portions of left common femoral vein, profunda (deep) femoral vein, femoral vein, popl iteal vein, peroneal veins, posterior tibial veins, anterior tibial vein, gastrocnemius vein and grea ter saphenous vein outflow are patent. Nonspecific 9 x 8 x 8 mm anechoic fluid collection at the roberto on of concern lateral to the left knee. IMPRESSION: 1. No deep venous thrombosis in the left lower limb. 2. Nonspecific 9 x 8 x 8 mm anechoic fluid collection at the lateral left knee with differential incl uding ganglion cyst, para meniscal cyst or hematoma or abscess in the appropriate clinical settings. Reviewed, dictated and finalized at location A. IMPRESSION: 1. No deep venous thrombosis in the left lower limb. 2. Nonspecific 9 x 8 x 8 mm anechoic fluid collection at the lateral left knee with differential including ganglion cyst, para meniscal cyst or hematoma or ab scess in the appropriate clinical settings.
[2024-01-24 08:45] VITALS: BP 164/97; PULSE 75; RESP 15; TEMP 36.8; O2SAT 95
[2024-01-24 09:28] LABS: Basophils Percent Auto 0.9 % (0.2-1.2); Eosinophils Absolute Auto 0.2 K/mm3 (0-0.3); Eosinophils Percent Auto 4.3 % (0-4.4); Hematocrit 43.3 % (37.0-47.0); Hemoglobin 14.5 g/dL (12.0-15.0); Immature Granulocyte Absolute 0.01 K/mm3 (0.00-0.031); Immature Granulocyte Percent A 0.2 % (0-0.5); Lymphocytes Absolute Auto 1.17 K/mm3 (0.9-3.2); Lymphocytes Percent Auto 27.7 % (18.3-44.2); Mean Corpuscular HGB Conc 33.5 g/dl (32-36); Mean Corpuscular Hemoglobin 28.9 pg (26-34); Mean Corpuscular Volume 86.4 fl (80-100); Mean Platelet Volume 9.4 fl (7.4-10.4); Monocytes Absolute Auto 0.4 K/mm3 (0.1-0.6); Monocytes Percent Auto 9.7 % (2.6-8.5); Neutrophils Absolute Auto 2.4 K/mm3 (1.3-6.7); Neutrophils Percent Auto 57.2 % (45.5-73.1); Platelet Count Result 272 k/mm3 (150-375); Red Blood Count 5.01 M/mm3 (4.2-5.4); Red Cell Distribution Width 12.4 % (11.5-14.5); White Blood Count 4.2 K/mm3 (4.5-10.0)
[2024-01-24 09:29] LABS: Alanine Aminotransferase 33 U/L (6-35); Albumin Level 4.8 g/dL (3.5-5.1); Alkaline Phosphatase 128 U/L (38-126); Anion Gap 13 mmol/L (4-12); Aspartate Amino Transferase 29 U/L (14-36); Bilirubin,Total 0.9 mg/dL (0.2-1.3); Blood Urea Nitrogen 28 mg/dL (7-17); Calcium 10.5 mg/dL (8.4-10.2); Carbon Dioxide 26 mmol/L (22-30); Chloride 99 mmol/L (98-107); Estimated CRCL calculation 85 ml/min; Estimated Glomerular Filt Rate > 60; Glucose 195 mg/dL (65-110); Magnesium 1.9 mg/dL (1.6-2.3); Potassium 3.8 mmol/L (3.4-5.0); Sodium 138 mmol/L (137-145)
--- NOTE | 2024-01-24 09:36 | ED.RECABL ---
HPI - Recheck/Abnormal Lab/Rx General Chief Complaint: Recheck/Abnormal Lab/Rx Stated Complaint: abnormal d dimer Time Seen by Provider: 01/24/24 08:56 Source: patient Mode of arrival: ambulatory Limitations: no limitations History of Present Illness HPI narrative: Patient is a 58-year-old female who presents the ED with report of left lower extremity pain and swelling. Patient reports she underwent left hip replacement in October with Dr. Davila at [facility] in [place], [place]. Reports she has had some intermittent swelling in her LLE and pain throughout her left lower leg/ankle region since the surgery. She has had 2 negative Venous Doppler US, negative x-rays of her foot and ankle, the states symptoms have persisted. She was told by her surgeon the swelling may be a side effect of the surgery. She saw her primary care doctor for this last week and had an outpatient D-dimer lab drawn, which was elevated. She has been referred here for further evaluation repeat ultrasound. Patient does report very occasional shortness breath, denies any currently. Denies chest pain. Denies history of blood clots. Not currently on any anticoagulation. Denies rash, fevers. Related Data Home Medications Medication Instructions Recorded Confirmed cholecalciferol (vitamin D3) 1,250 50,000 unit PO WEEKLY 10/10/19 08/05/20 mcg (50,000 unit) capsule hydrochlorothiazide 12.5 mg capsule 12.5 mg PO DAILY 10/10/19 08/05/20 adalimumab 40 mg/0.4 mL subcut 05/28/20 08/05/20 subcutaneous syringe kit (Humira(CF)) ergocalciferol (vitamin D2) 1,250 PO 05/28/20 08/05/20 mcg (50,000 unit) capsule hydrochlorothiazide 12.5 mg tablet PO 05/28/20 08/05/20 Allergies Allergy/AdvReac Type Severity Reaction Status Date / Time folic acid Allergy Severe Rash Verified 01/24/24 08:49 Penicillins Allergy Mild Rash Verified 01/24/24 08:49 methotrexate Allergy Unknown Rash Verified 01/24/24 08:49 Sulfa (Sulfonamide Allergy Unknown Rash Verified 01/24/24 08:49 Antibiotics) Review of Systems Review of Systems: CONSTITUTIONAL: Denies fever, chills, or sweats. CARDIOVASCULAR: Denies chest pain, palpitations, or edema. RESPIRATORY: See HPI MUSCULOSKELETAL: See HPI. NEUROLOGIC: Denies headache, dizziness, numbness, or weakness. All systems reviewed & are unremarkable except as noted in HPI and below PMFSH Past Medical History Medical History Acute arthritis Chest pain on exertion (~04/2011) Counseling on health promotion and disease prevention Hypertension Rheumatoid arthritis Shortness of breath Surgical History Surgical History Delivery by section H/O: hysterectomy H/O: myomectomy History of tonsillectomy Hx of cholecystectomy Hx of knee surgery Family History Family History Mother Alzheimer disease Grandparent Heart disease Grandparent Colon cancer Social History Social History Smoking status: Never smoker Alcohol intake: current Exam Narrative: GENERAL: Well appearing, obese with BMI of 32.6, non-toxic, in no acute distress. HEAD: Normocephalic, atraumatic. RESPIRATORY: Airway patent, respirations nonlabored. Clear to auscultation bilaterally, no rales, rhonchi, wheezing. No focal lung sounds. No distress. CARDIOVASCULAR: Regular rate and rhythm without murmurs, rubs, or gallops. Pedal pulses intact and easily palpable. MUSCULOSKELETAL: Moves all extremities. No gross deformities. Very minimal swelling noted to LLE compared to R. TTP throughout L lower leg, proximal to ankle joint. Minimal erythema present. No rash, warmth, wounds. SKIN: Warm, dry, normal color. NEURO: A&O X3. Speech clear. Cranial nerves II-XII grossly intact. Steady gait. No ataxic movements. PSYC
[2024-01-24 09:38] LABS: INR 0.9; NT Pro B Type Natriuretic Pept 21 pg/mL (19.9-100); Prothrombin Time 12.8 Seconds (11.1-14.7)
[2024-01-24 09:39] LABS: Partial Thromboplastin Time 26.1 Seconds (22.3-36.8)
== END 2024-01-24 10:50 | disposition home or self-care (01) ==
PROVIDERS: Emergency Provider Physician Assistant; PCP Internal Medicine
DX: M79.89 Other specified soft tissue disorders (principal); M19.90 Unspecified osteoarthritis, unspecified site; I10 Essential (primary) hypertension
CPT/HCPCS: 36415; 73590; 80053; 83735; 83880; 85025; 85610; 85730; 93971; 99284

== ENCOUNTER 2024-02-29 16:34 | Emergency (ER) | payer OTHER, SELFPAY ==
--- NOTE | ~2024-02-29 | XR_ITS ---
EXAM: XR elbow LT min 3V, XR humerus LT, XR forearm LT 2V, XR shoulder LT min 2V DATE: 02/29/2024 17:52 HISTORY: fall . COMPARISON: None available. FINDINGS: Normal mineralization. Transverse, minimally impacted left radial head fracture. No other fracture detected. No lytic or blastic lesion. Mild degenerative change at the AC joint, glenohumeral joint, and elbow joint. Mild rotator cuff calcific tendinitis. No erosion or periosteal change. Mode rate left elbow joint effusion. IMPRESSION: Minimally impacted left radial head fracture. No other acute osseous finding detected in the left shoulder, humerus, elbow, or forearm. Reviewed, dictated and finalized at location K. IMPRESSION: Minimally impacted left radial head fracture. No other acute osseou s finding detected in the left shoulder, humerus, elbow, or forearm. IMPRESSION: Minimally impacted left radial head fracture. No other acute osseou s finding detected in the left shoulder, humerus, elbow, or forearm. IMPRESSION: Minimally impacted left radial head fracture. No other acute osseou s finding detected in the left shoulder, humerus, elbow, or forearm.
--- NOTE | ~2024-02-29 | XR_ITS ---
EXAM: XR knee RT 3V DATE: 02/29/2024 17:52 HISTORY: fall . COMPARISON: 05/19/2014. FINDINGS: Decreased mineralization. No fracture or dislocation. No lytic or blastic lesion. Tricompa rtmental right knee osteoarthritis, moderate in the patellofemoral and medial compartments. No erosio n or periosteal change. Soft tissues within normal limits. IMPRESSION: No acute osseous finding in the right knee. Reviewed, dictated and finalized at location K.
--- NOTE | 2024-02-29 17:16 | PC.NURSE ---
Pt c/o pain to left shoulder, left humerus, left forearm, right knee after ground level fall today,left humerus tender to touch. CMS intact to left arm & left leg.
[2024-02-29 18:00] VITALS: BP 149/90; PULSE 60; RESP 18; TEMP 36.7; O2SAT 98
[2024-02-29] MEDS: ACETAMINOPHEN 500 MG TABLET 1000 MG PO (18:20)
[2024-02-29] MEDS: methocarbamoL 750 MG TABLET PO (18:21)
[2024-02-29] MEDS: IBUPROFEN 400 MG TABLET 800 MG PO (18:21)
--- NOTE | 2024-02-29 18:52 | ED.GENADULT ---
HPI - General Adult General Chief complaint: Fall Stated complaint: fall down 3 steps-left arm pain Time Seen by Provider: 02/29/24 17:21 History of Present Illness HPI narrative: This is a 58-year-old female presenting after a fall. She was going down 3 steps when she tripped and caught herself on her left arm. She now has pain from the shoulder down to the wrist. She has pain with pronation supination left arm. 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 She also has some pain to the right knee but has been ambulatory. No head trauma. No other injuries. Related Data Home Medications Medication Instructions Recorded Confirmed cholecalciferol (vitamin D3) 1,250 50,000 unit PO WEEKLY 10/10/19 08/05/20 mcg (50,000 unit) capsule hydrochlorothiazide 12.5 mg capsule 12.5 mg PO DAILY 10/10/19 08/05/20 adalimumab 40 mg/0.4 mL subcut 05/28/20 08/05/20 subcutaneous syringe kit ([employer](CF)) ergocalciferol (vitamin D2) 1,250 PO 05/28/20 08/05/20 mcg (50,000 unit) capsule hydrochlorothiazide 12.5 mg tablet PO 05/28/20 08/05/20 Allergies Allergy/AdvReac Type Severity Reaction Status Date / Time folic acid Allergy Severe Rash Verified 02/29/24 16:34 Penicillins Allergy Mild Rash Verified 02/29/24 16:34 methotrexate Allergy Unknown Rash Verified 02/29/24 16:34 Sulfa (Sulfonamide Allergy Unknown Rash Verified 02/29/24 16:34 Antibiotics) [facility] Past Medical History Medical History Acute arthritis Chest pain on exertion (~04/2011) Counseling on health promotion and disease prevention Hypertension Rheumatoid arthritis Shortness of breath Surgical History Surgical History Delivery by section H/O: hysterectomy H/O: myomectomy History of tonsillectomy Hx of cholecystectomy Hx of knee surgery Family History Family History Mother Alzheimer disease Grandparent Heart disease Grandparent Colon cancer Social History Social History Smoking status: Never smoker Alcohol intake: current Exam Narrative: APPEARANCE: No apparent distress. Head: atraumatic. EYES: EOMI, NOSE: Atraumatic NECK: Trachea midline RESPIRATORY: No increased rate of breathing CARDIOVASCULAR: RRR, ABDOMINAL: Non-distended MUSCULOSKELETAl: Focused exam of the left upper extremity revealed tenderness over both the upper and lower arm. Maximal tenderness over the radial head. Territory Business Manager strength intact. Pulses intact. Focal exam of right knee revealed some mild bruising without significant edema or swelling. NEURO: Alert. Moving 4/4 extremities SKIN:: Warm, dry. Normal color PSYCHIATRIC: Normal affect Course Vital Signs Vital signs: Vital Signs Temperature 98.0 F 02/29/24 18:00 Pulse Rate 60 02/29/24 18:00 Respiratory Rate 18 02/29/24 18:00 Blood Pressure 149/90 H 02/29/24 18:00 Pulse Oximetry 98 02/29/24 18:00 Temperature 98.0 F 02/29/24 18:00 Pulse Rate 60 02/29/24 18:00 Respiratory Rate 18 02/29/24 18:00 Blood Pressure 149/90 H 02/29/24 18:00 Pulse Oximetry 98 02/29/24 18:00 Medical Decision Making [facility] Narrative Medical decision making narrative: -Course: 58-year-old female presenting with left arm pain after a fall. Found to have a impacted radial head fracture. Patient placed in sling and given pain control. Patient discharged with orthopedic follow-up -DDX includes but is not limited to: Bony injury, soft tissue injury -Co-morbidities complicating care: Functional neurologic disorder/pain syndrome -Independent interpretation of studies: X-rays showed a minimally impacted radial head fracture -Interventions: Motrin Tylenol Robaxin -Shared decision making / Disposition: Discharged -RX Motrin Tylenol Robaxin Vital Signs Vital Sig
== END 2024-02-29 19:26 | disposition home or self-care (01) ==
PROVIDERS: Emergency Provider Emergency Medicine; PCP Internal Medicine
DX: S52.122A Displaced fracture of head of left radius, initial encounter for closed fracture (principal); S80.01XA Contusion of right knee, initial encounter; I10 Essential (primary) hypertension; M06.9 Rheumatoid arthritis, unspecified; Z90.710 Acquired absence of both cervix and uterus; Z90.49 Acquired absence of other specified parts of digestive tract; W10.9XXA Fall (on) (from) unspecified stairs and steps, initial encounter
CPT/HCPCS: 73030; 73060; 73080; 73090; 73562; 99284; A4565; A9270

== ENCOUNTER 2024-05-29 14:15 | Outpatient (CLI) | payer OTHER, SELFPAY ==
--- NOTE | ~2024-05-29 | MR_ITS ---
EXAMINATION: MR knee LT wo con DATE: 05/29/2024 14:56 INDICATION: Popliteal pain at the left knee TECHNIQUE: Magnetic resonance imaging (MRI) of the left knee was performed without intravenous contra st. Sequences included coronal PD-weighted FSE, coronal PD-weighted FS FSE, sagittal T2-weighted FSE , sagittal PD-weighted FS FSE and axial PD weighted fat saturated FSE. COMPARISON: None. FINDINGS: Medial compartment: Medial extrusion of the medial meniscal body. Complex tear of the posterior horn of the medial menisc us which appears to extend to contact both the superior and inferior articular surfaces. Partial-thic kness chondral ulceration along the anterior to central weightbearing medial femoral condyle, in plac es deep with underlying small central subchondral osteophytes. There is additional partial thickness chondral ulceration and deep fissuring along the anterolateral aspect the medial tibial plateau exten ding onto the shoulder the anterior intercondylar eminence. There is underlying subarticular edema-li ke signal change and an additional small central subchondral osteophyte. Additional moderate size mar ginal osteophyte are present. Lateral compartment: Lateral extrusion of the lateral meniscal body. The anterior horn of the lateral meniscus appears sma ll with increased signal consistent with tear and possible secondary degeneration or displacement of some meniscal tissue. There is fraying along the inner third of the anterior body of the lateral meni scus there is deep chondral ulceration along the central weightbearing lateral femoral condyle with a dditional small central subchondral osteophyte at the junction of the anterior to central weightbeari ng lateral femoral condyle.. There is chondral swelling and partial-thickness fissuring along the ant erior weightbearing lateral femoral condyle. Additional partial-thickness fissuring with chondral craig face regular irregularity along the lateral tibial plateau. Small to moderate size marginal osteophyt es are present. Patellofemoral compartment: Partial-thickness chondral ulceration and fissuring without degenerative subchondral changes along th e medial and lateral patellar facets and intervening apical ridge. There are moderate-sized marginal osteophytes at the periphery of the patella. Partial-thickness chondral ulceration and deep fissuring at the trochlea with moderate size central subchondral osteophytes at the trochlear groove and immed iately adjacent medial trochlea and with small focus of subarticular edema-like signal change at the lateral trochlea. Large marginal osteophytes along the superior trochlea. Ligaments and tendons: There is thickening central portion of the posterior cruciate ligament with increased signal anterior ly suggesting at least partial tear. There is a prominent marginal osteophyte along the medial margin of the lateral trochlea which abuts appears to exert some mass effect upon the lateral side of the a nterior cruciate ligament. There is significant increased signal of the distal portion of the anterio r cruciate ligament which appears to maintain a normal course relative to normal sized line on the sa gittal imaging without a discrete tear and increased signal likely related to mucoid degeneration. Th e medial collateral ligament and fibular collateral ligament complex are normal. Mild distal patellar tendinopathy without discrete tear. Small enthesophytes at the patellar insertion of the otherwise n ormal distal quadriceps tendon. The visualized medial and lateral hamstring tendons as well as the il iotibial band are normal. Fluid: Small knee joint effusion. Multiple prominent loose osteochondral bodies in the recesses posterior to the medial and lateral femoral condyles as well as the recess anterior to the anterior horn of the l ateral meniscus. Osseous/other: Bone alignment is normal. No fracture or pathologic marrow replacing process. IMPRESSION: 1. Medial and lateral meniscal tears. 2. Mild tricompartmental osteoarthritis with extensive moderate and high-grade chondromalacia in all 3 compartments. 3. Likely mucoid degeneration without definitive tear of the anterior cruciate ligament which abuts a prominent marginal osteophyte arising from the lateral side of the intercondylar notch. 4. Partial tear of the central portion of the posterior cruciate ligament. Correlate with physical ex am to assess for degree of vertebral functional integrity. Reviewed, dictated and finalized at location B. E WORKER IMPRESSION: 1. Medial and lateral meniscal tears. 2. Mild tricompartmental osteoarthritis with extensive moderate and high-grade chondromalacia in all 3 compartments. 3. Likely mucoid degeneration without definitive tear of the anterior cruciate ligament which abuts a prominent marginal osteophyte arising from the lateral s brandin of the intercondylar notch. 4. Partial tear of the central portion of the posterior cruciate ligament. Maribel elate with physical exam to assess for degree of vertebral functional integrity .
== END 2024-05-29 14:16 | disposition home or self-care (01) ==
LOC: GOSHIMG 14:18
DX: M17.12 Unilateral primary osteoarthritis, left knee (principal); S83.282A Other tear of lateral meniscus, current injury, left knee, initial encounter; S83.242A Other tear of medial meniscus, current injury, left knee, initial encounter; X58.XXXA Exposure to other specified factors, initial encounter
CPT/HCPCS: 73721

== ENCOUNTER 2024-08-26 09:45 | Outpatient (CLI) | payer OTHER, SELFPAY ==
--- NOTE | ~2024-08-26 | MM_ITS ---
EXAMINATION: MM screening leidy BI w ninoska HISTORY: Screening TECHNIQUE: Craniocaudal and mediolateral oblique 3-D tomosynthesis images were obtained and synthetic 2-D images were generated. CAD analysis was submitted and interpreted. COMPARISON: Comparison to multiple prior studies sequentially, with oldest reviewed study dated 10/2016. BREAST PARENCHYMAL COMPOSITION: Dense: The breasts are heterogeneously dense, which may obscure small masses FINDINGS: There is no evidence of suspicious mass, calcification, or architectural distortion to sugg est malignancy in either breast. There has been no suspicious interval change. IMPRESSION: 1. No mammographic evidence of malignancy. 2. Recommend routine screening mammography in one year. BI-RADS Category 1: Negative Reviewed, dictated and finalized at location B. CTIVE CHIEF
--- OUTSIDE RECORDS SUMMARY | 2024-08-26 09:49 | XMS_ITS | Clinical Summary ---
Author Organization [facility] Address [address] [place] [address] Care Team Providers Care Geospatial Analyst Name Role Phone Tyler Pinedo MD Primary Care Provider [phone] Allergies Active Allergy Reactions Criticality Noted Date Comments Folic Acid Rash Low 10/21/2020 Methotrexate Rash Low 10/21/2020 Penicillin V Rash Low 10/21/2020 Rosuvastatin Myalgias 05/06/2023 Medications vitamin D3 (CHOLECALCIFEROL ) 25 mcg tabletIndication s:Vitamin D Deficiency Take 1 tablet (25 mcg total) by mouth daily. 30 tablet 05/10/20 23 Active acetaminophen (TYLENOL) 500 MG tabletIndication s:Pain Take 2 tablets (1,000 mg total) by mouth every 6 (six) hours as needed. Indications: Pain 10/24/19 24 Active meloxicam (MOBIC) 15 MG tabletIndication s:Aftercare following left hip joint replacement surgery Take 1 tablet (15 mg total) by mouth daily. 30 tablet 1 12/08/19 24 Active pravastatin (PRAVACHOL) 20 MG tabletIndication s:Blood Cholesterol Abnormal Take 1 tablet (20 mg total) by mouth daily. Indications: Blood Cholesterol Abnormal 90 tablet 1 05/10/20 24 Active hydroCHLOROthiaz brandin (HYDRODIURIL) 25 MG tabletIndication s:Hypertension Take 1 tablet (25 mg total) by mouth every morning. Indications: High Blood Pressure 90 tablet 1 05/10/20 24 Active carvedilol (COREG) 12.5 MG tabletIndication s:Essential hypertension Take 1 tablet (12.5 mg total) by mouth 2 (two) times daily. 180 tablet 1 05/10/20 24 Active sertraline (ZOLOFT) 25 MG tabletIndication s:Depression Take 1.5 tablets (37.5 mg total) by mouth daily. Indications: Depression 135 tablet 1 08/11/19 25 Active sertraline (ZOLOFT) 25 MG tabletIndication s:Depression Take 1.5 tablets (37.5 mg total) by mouth daily. Indications: Depression 135 tablet 1 05/10/20 24 025 Discontinu ed(Reorder ) neomycin-polymyx in-hydrocortison e (CORTISPORIN) otic solutionIndicati ons:Acute swimmer's ear of right side Place 3 drops into the right ear 4 (four) times daily for 10 days. 10 mL 08/11/19 25 025 Active Problems Problem Noted Date Diagnosed Date S/P total hip arthroplasty 10/22/2023 Arthritis of left hip 10/04/2023 Arthritis of knee, left 08/20/2023 Mixed hyperlipidemia 11/12/2021 Prediabetes 11/05/2021 NAFLD (nonalcoholic fatty liver disease) 021 Hepatomegaly 04/08/2021 Elevated liver enzymes 04/08/2021 Essential tremor 03/25/2021 Memory impairment 03/25/2021 Essential hypertension 04/19/2017 Overview (03/25/2021): Last Assessment & Plan: Diastolic blood pressure is elevated. Increase hydrochlorothiazide from 12.5 mg daily to 25 mg daily 3 days after she stops taking the Bactrim. After increasing the hydrochlorothiazide we will repeat renal panel in 2-3 weeks after that. Long-term current use of hig h risk medication other than anticoagulant 01/11/2017 Rheumatoid arthritis ([facility]/HCC) 7 Overview (03/25/2021): Sees rheumatology. On Humira. Obesity with body mass index 30 or greater 07/21 Encounters Date Type Department Care Team Description 08/25/2024 11:00 AM SIX SIGMA BLACK TRAINER Office Visit [facility] Physical Therapy [address] [facility] [address] [place] [id number] Tyler Pinedo MD Tolle, Lisa C, PT Generalized Weakness 08/25/2024 Travel 08/11/2024 11:40 AM SIX SIGMA BLACK TRAINER Office Visit [place] [id number] [place] [address] Tyler Pinedo MD Follow Up (FMLA); Anxiety; Ear Problem; Neurologic Problem 08/11/2024 Scan HEALTH INFO SRVCS Scanned, [facility] 08/11/2024 Travel 08/09/2024 8:00 AM SIX SIGMA BLACK TRAINER Office Visit [facility] Physical Therapy [address] [place] [id number] Tylre Pinedo MD Tolle, Lisa C, PT Generalized Weakness 08/09/2024 Travel 07/17/2024 11:00 AM SIX SIGMA BLACK TRAINER Office Visit [facility] Physical [facility] [address] [place] [address] Tyler Pinedo MD Tolle, Lisa C, PT Generalized Weakness 07/17/2024 Travel 07/03/2024 Scan HEALTH INFO SRVCS Scanned, [facility] 06/28/2024 8:45 AM SIX SIGMA BLACK TRAINER Office Visit [facility] Physical Therapy [address] [place] [id number] Tyler Pinedo MD Tolle, Lisa C, PT Generalized Weakness 06/28/2024 Travel 06/27/2024 Telephone [facility] [address] [place] [address] Tyler Pinedo MD Referral 06/14/2024 Scan HEALTH INFO SRVCS Scanned, [facility] from Last 3 Months Immunizations Name Administration Dates Next Due Fluzone 6 Months+ Quad (0.5 mL Prefilled Syringe) 05/13/2022 Influenza (Generic) 05/01/2024 Influenza Adult (Generic) 05/13/2023 MODERNA COVID-19 BIVALENT (1 2+), MRNA, LNP-S, PF 05/12/2022 MODERNA COVID-19 (12+) MRNA, LNP-S, PF, 100 MCG/ 0.5 ML DOSE 05/13/2023,10/08/2020,08/29/2020,2020 MODERNA COVID-19 (12+), MRNA , LNP-S, PF, 50 MCG/0.5 ML (SPIKEVAX) 05/01/2024,05/13/2023 MODERNA COVID-19 (LATEX THREAD MACHINE OPERATOR STACEY ROCÍO), MRNA, LNP-S, PF, 50 MCG/ 0.25 ML DOSE 06/09/2021 Pneumococcal (Pneumovax 23) 04/08/2021 Pneumococcal (Prevnar 13) 08/17/2022 Tdap (Adacel) 07/08/2021 Family History Medical History Relation Comments No Known Problems Father Alzheimers Maternal Grandmother Dementia Maternal Grandmother Alzheimers Mother Dementia Mother Heart Attack Paternal Grandfather Hypertension Paternal Grandfather Heart Attack Paternal Grandmother Hypertension Paternal Grandmother Relation Status Comments Brother Alive Father (Age 74) Maternal Grandfather (Age 99) Maternal Grandmother (Age 70) Mother Alive Paternal Grandfather (Age 58) Paternal Grandmother (Age 62) Social History Tobacco Use Types Packs/Day Years Used Date Smoking Tobacco: Never Passive Smoke Exposure: Never Smokeless Tobacco: Never Tobacco Cessation:Counseling Given: Yes Comments:counseled by Dr Pinedo Alcohol Use Standard Drinks/Week Comments Yes 3.3 (1 standard drink = 0.6 oz p ure alcohol) [facility] Utilities Answer Date Recorded In the past 12 months has [facility] [employer], or water [email or web address] threatened to shut off services in your home? No 10/22/2023 Humiliation, Afraid, Rape, and Kick questionnair e Answer Date Recorded Within the last year, have y ou been afraid of your partner or ex-partner? No 10/22/2023 Within the last year, have y ou been humiliated or emotionally abused in other ways by your partner or ex-partner? No Within the last year, have y ou been kicked, hit, slapped, or otherwise physically hurt by your partner or ex-partner? No 10/22/2023 Within the last year, have y ou been raped or forced to have any kind of sexual activity by your partner or ex-partner? No 10/22/2023 AUDIT-C Answer Date Recorded Q1: How often do you have a drink containing alc ohol? Monthly or less 05/10/2024 Q2: How many drinks containi ng alcohol do you have on a typical day when you are drinking? 1 or 2 05/10/2024 Q3: How often do you have si x or more drinks on one occasion? Never 05/10/2024 Overall Financial Resource Strain (CARDIA) Answe r Date Recorded How hard is it for you to pa y for the very basics like food, housing, medical care, and heating? Not hard at all 10/22/2023 PHQ-2 Answer Date Recorded Patient Health Questionnaire-2 Score 0 08/11/2024 Hunger Vital Sign Answer Date Recorded Within the past 12 months, y ou worried that your food would run out before you got the money to buy more. Never true 10/22/19 24 Within the past 12 months, t he food you bought just didn't last and you didn't have money to get more. Never true 10/22/2023 PRAPARE - Transportation Answer Date Re corded In the past 12 months, has l ack of transportation kept you from medical appointments or from getting medications? No 11/2023 In the past 12 months, has l ack of transportation kept you from meetings, work, or from getting things needed for daily living? No 10/22/2023 Housing Stability Vital Sign Answer Georgi e Recorded In the last 12 months, was t here a time when you were not able to pay the mortgage or rent on time? No 10/22/2023 In the last 12 months, how many places have you lived? 1 10/22/2023 In the last 12 months, was t here a time when you did not have a steady place to sleep or slept in a usp (including now)? 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 file Last Filed Vital Signs Vital Sign Reading Time Taken Comments Blood Pressure 121/66 08/11/2024 11:51 AM SIX SIGMA BLACK TRAINER Pulse 86 08/11/2024 11:51 AM SIX SIGMA BLACK TRAINER Temperature 35.9 C (96.7 F) 08/11/2024 11:51 AM SIX SIGMA BLACK TRAINER Respiratory Rate 16 08/11/2024 11:51 AM SIX SIGMA BLACK TRAINER Oxygen Saturation 99% 08/11/2024 11:51 AM SIX SIGMA BLACK TRAINER Inhaled Oxygen Concentration - - Weight 88.5 kg (195 lb) 08/11/2024 11:51 AM SIX SIGMA BLACK TRAINER Height 170.2 cm (5' 7 ) 08/11/2024 11:51 AM SIX SIGMA BLACK TRAINER Body Mass Index 30.54 08/11/2024 11:51 AM SIX SIGMA BLACK TRAINER Plan of Treatment Upcoming Encounters Date Type Department Care Team (Late st Contact Info) Description 09/08/2024 11:00 AM SIX SIGMA BLACK TRAINER Office Visit [facility] Physical Therapy [address] [place] [id number] Diana Boyd, [place] [address] 09/22/2024 11:00 AM SIX SIGMA BLACK TRAINER Office Visit [facility] Physical [address] [address] Diana Boyd, [place] [address] 11/08/2024 8:20 AM CDT Office Visit [facility] Medical Group [facility] - [place] [address] [address] [place] [address] Tyler Pinedo MD [address] [place] [address] Health Maintenance Due Date Last Done Comments Zoster Vaccines (1 of 2) 2014 RSV Immunization or 60+ Years (1 - Risk 60-74 years 1-dose series) 2024 Mammogram Screening 01/13/2025 01/13/2023, 11/23/2022, 09/17/2021, Additional history exists Annual Physical 05/10/2025 05/10/2024, 04/19, 04/07/2022, Additional history exists DTaP, Tdap and Td Vaccines (2 - Td or Tdap) 07/08/2031 07/08/2021 Colorectal Cancer Screening Colonoscopy (10 Years) 10/08/2032 10/08/2022, 10/08/2022, 12/21/2016 Hepatitis C Completed 03/26/2021 Pneumococcal Vaccine: Pediatrics (0 to 5 Years) and At-Risk Patients (6 to 64 Years) Aged Out 08/17/2022, 04/08/2021 No longer eligibl e based on patient's age to complete this topic COVID-19 Vaccine Completed 05/01/2024, , 05/13/2023, Additional history exists Influenza Adult Completed 05/01/2024, 04/19, 05/13/2022 PHQ-2 (Physician Gillespie) Completed 08/11/2024 Meningococcal B Vaccine Aged Out No l onger eligible based on patient's age to complete this topic Meningococcal Vaccine Aged Out No [place] eligible based on patient's age to complete this topic RSV Immunizations Under 20 Months Aged Out No longer eligible based on patient's age to complete this topic Medical Devices Implanted Type Area Fishing Accessories Maker Device Identifier Shelf Expiration Date Model / Serial / Lot Cup Acetabular Depuy 52mm - [id number] Implanted:Qty : 1 on 10/22/2023 by Hussain Davila MD at [facility] Hip Components Left: Hip DEPUY [id number] 07/18/2033 [id number] / / [id number] Liner Depuy Acetabular Altrx Neut 36x52 - [id number] Implanted:Qty : 1 on 10/22/2023 by Hussain Davila MD at [facility] Hip Components Left: Hip DEPUY [id number] 08/18/2028 [id number] / / [id number] Stem Femoral Collar Actis Duofix 5 Standard Offset Hip Sterile - [id number] Implanted:Qty : 1 on 10/22/2023 by Hussain Davila MD at [facility] Hip Components Left: Hip DEPUY [id number] 12/16/2032 [id number] / / [id number] Head Depuy Femoral Delta 36mm +5 - [id number] Implanted:Qty : 1 on 10/22/2023 by Hussain Davila MD at [facility] Hip Components Left: Hip DEPUY [id number] 07/18/2028 [id number] / / [id number] Screw Depuy [place] Cancellous 6.5 X 15mm - [id number] Implanted:Qty : 1 on 10/22/2023 by Hussain Davila MD at [facility] Screw Left: Hip DEPUY [id number] 09/16/2031 [id number] / / [id number] Screw [place] Depuy 6.5 X 20mm - [id number] Implanted:Qty : 1 on 10/22/2023 by Hussain Davila MD at [facility] Screw Left: Hip DEPUY [id number] 10/16/2032 [id number] / / [id number] Procedures Procedure Name Priority Date/Time Associated Diagnosis Comments MAMMOGRAM GENERIC (SCAN ORDER) 11/23/2022 COLONOSCOPY Routine 10/08/2022 6:26 AM CDT HEPATITIS C ANTIBODY Routine 03/26/2021 8:55 AM CDT Encounter for medical examination to establish care Annual physical exam General medical exam Encounter for hepatitis C screening test for low risk patient from Last 3 Months or Most Recently Relevant to Health Maintenance Results * MAMMOGRAM GENERIC (11/23/2022) Anatomical Region Laterality Modality Other 11/23/2022 us [facility] Scanned SCANNING Final Resu lt * HEPATITIS C ANTIBODY (03/26/2021 8:55 AM CDT) HEPATITIS C AB NON-REACTI VE NON-REACT [place] 03/26/2021 9:40 PM CDT [facility] Comment: ANTIBODIES TO HCV NOT DETECTED. DOES NOT EXCLUDE THE POSSIBILITY OF EXPOSURE TO HCV. 03/26/2021 8:55 AM CDT Tyler Pinedo MD LABORATORY Final Result [facility] [address] [place] [address], [id number] * COLONOSCOPY GENERIC (12/21/2016) 12/21/2016 Narrative 12/21/2016 Ordered by an unspecified provider. us Documents Scanned SCANNING Final Result from Last 3 Months or Most Recently Relevant to Health Maintenance Insurance [employer] OPEN ACCESS [facility] Advance Directives * Full Code (Latest Code Status on File) Date Activated Date Inactivated Comments 10/24/2023 8:57 PM * Full Code Date Activated Date Inactivated Comments 10/22/2023 3:11 PM 10/23/2023 8:48 PM Care Teams Geospatial Analyst Relationship Specialty Start Date End Date Tyler Pinedo MD [address] [facility] [address] [place] [id number] PCP - General INTERNAL MEDICINE 03/25/21
--- OUTSIDE RECORDS SUMMARY | 2024-08-26 09:49 | XMS_ITS | Encounter Summary ---
Author Organization [facility] Healthcare Address [address] [place] [address] Care Team Providers Care Comparison Shopper Name Role Phone Unavailable Primary Care Provider Unavailabl e Reason for Visit * Diagnostic Imaging (Routine) - Closed Specialty Diagnoses / Procedures Referred By Contac t Referred To Contact Procedures Breast Imaging Diagnostic Outside Reference Sruthi Boles NP [address] [facility] [phone] [place] [address] Phone: tel: fax: Referral ID Status Reason Start Date Expiration Date Visits Re quested Visits Authorized [id number] Closed 01/04/2023 02/03/2024 1 1 Encounter Details Date Type Department Care Team (Late st Contact Info) Description 05/28/2014 Hospital Encounter [facility] [address] [place] [id number] Social History Tobacco Use Types Packs/Day Years Used Date Smoking Tobacco: Never Passive Smoke Exposure: Never Smokeless Tobacco: Never Alcohol Use Standard Drinks/Week Comments No 0 (1 standard drink = 0.6 oz pur e alcohol) AUDIT-C Answer Date Recorded Q1: How often do you have a drink containing alc ohol? 2-3 times a week 10/01/2020 Q2: How many drinks containi ng alcohol do you have on a typical day when you are drinking? 1 or 2 10/01/2020 Q3: How often do you have si x or more drinks on one occasion? Never 10/01/2020 [facility] Occupat ional Health - Occupational Stress Questionnaire Answer Date Recorded Do you feel stress - tense, restless, nervous, or anxious, or unable to sleep at night because your mind is troubled all the time - these days? Very much 10/01/2020 Exercise Vital Sign Answer Date Recorde d On average, how many days pe r week do you engage in moderate to strenuous exercise (like a brisk walk)? 4 days 10/01/2020 On average, how many minutes do you engage in exercise at this level? 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 No / Unsure 10/06/2019 3:47 PM CDT documented as of this encounter Plan of Treatment Not on file documented as of this encounter Procedures Procedure Name Priority Date/Time Associated Diagnosis Comments BREAST IMAGING MG DIAGNOSTIC OUTSIDE REFERENCE Schedule Routine, Read Routine (OP Routine) 05/28/2014 12:00 AM TUBE WASHER documented in this encounter Results * Breast Imaging Diagnostic Outside Reference (05/28/2014 12:00 AM TUBE WASHER) Impressions RAD_MAMMO[facility] - 01/04/2023 4:20 PM CDT These images are for Reference purposes only and have not been reviewed by [facility] Radiology. There will be no report generated by a [facility] Radiologist. Narrative [facility]_MAMMO[facility] - 01/04/2023 4:20 PM CDT EXAMINATION: Images For Reference Purposes Only us Sruthi Boles NP IMG MAMMO PROCEDURES Final Result [facility] documented in this encounter Visit Diagnoses Not on filedocumented in this encounter
--- OUTSIDE RECORDS SUMMARY | 2024-08-26 09:49 | XMS_ITS | Encounter Summary ---
Author Organization [facility] Address [facility] [place] [address] Care Team Providers Care Steel Sampler Name Role Phone Tyler Pinedo MD Primary Care Provider [phone] Encounter Details Date Type Department Care Team (Latest Contact Info) Description 06/15/2023 [employer] Message Enc [facility] - [place] [address] [place] [address] [address] [place], [place] [phone] [place] [address] [place] [address] [address] [place], [place] [phone] Follow up appointment for mood medication Social History Tobacco Use Types Packs/Day Years Used Date Smoking Tobacco: Never Smokeless Tobacco: Never Comments:counseled by Dr Thu pollock Alcohol Use Standard Drinks/Week Comments Yes 3.3 (1 standard drink = 0.6 oz p ure alcohol) AUDIT-C Answer Date Recorded Q1: How often do you have a drink containing alc ohol? Monthly or less 10/21/2020 Q2: How many drinks containi ng alcohol do you have on a typical day when you are drinking? 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 Physical Therapy [address] [place] [address] Diana Boyd, [place] [address] 09/22/2024 11:00 AM TRACK MAN Office Visit [facility] Physical Therapy [address] [place] [address] Diana Boyd, [place] [address] 11/08/2024 8:20 AM CDT Office Visit [facility] Medical Group Mult[facility] Care - [place] [address] [address] [place] [address] Tyler Pinedo MD [address] [place] [phone] documented as of this encounter Visit Diagnoses Not on filedocumented in this encounter Additional Health Concerns Assessment Noted Time PHQ-9 Depression Total Score: 4 01/14/20 23 9:30 AM CDT documented as of this encounter Care Teams Steel Sampler Relationship Specialty Start Date End Date Tyler Pinedo MD [address] [place] [address] PCP - General INTERNAL MEDICINE 03/25/21 documented as of this encounter
--- OUTSIDE RECORDS SUMMARY | 2024-08-26 09:49 | XMS_ITS | Referral Summary ---
Author Organization [facility] Address [address] [place] [address] Phone Care Team Providers Care Rolled Gold Plater Name Role Phone Tyler Pinedo MD Primary Care Provider [phone] Valarie Ng MD Unavailable [phone] Encounters Date Type Department Care Team Description 07/21/[address] [facility] Orthopaedic Surgery [address] [place] [phone] Cara Chavez BS 07/07/2024 11:00 AM SUSTAINABILITY PROJECT MANAGER Therapy [facility] Occupational Therapy [address] [place] [address] Stella Peraza OT Functional neurological symptom disorder with mixed symptoms (Primary Dx) 07/03/2024 3:10 PM SUSTAINABILITY PROJECT MANAGER Office Visit [facility] Orthopaedic Surgery [facility] Advanced [facility] 12th [place] [address] [place] [phone] Blas Wilson IV, MD Primary osteoarthritis of left knee (Primary Dx); Effusion of left knee; Chronic pain of left knee 06/14/[address] [facility] Orthopaedic Surgery [address] [place] [phone] Cara Chavez, BESSY Closed displaced fracture of neck of left radius with delayed healing, subsequent encounter (Primary Dx) 06/14/2024 9:00 AM SUSTAINABILITY PROJECT MANAGER - 06/14/2024 11:59 PM SUSTAINABILITY PROJECT MANAGER Hospital Encounter [facility] [address] [place] [address] Closed displaced fracture of neck of left radius with routine healing, subsequent encounter Discharge Disposition: Discharge to home or self care 06/14/2024 8:45 AM SUSTAINABILITY PROJECT MANAGER Office Visit [facility] Orthopaedic Surgery [address] [facility] 2nd [address] [place] [address] Dwight Lutz PA Closed displaced fracture of neck of left radius with delayed healing, subsequent encounter (Primary Dx) 06/12/[address] [facility] Orthopaedic Surgery [address] [place] [address] Sandra Schaeffer NP Popliteal pain; Chronic pain of both knees; Primary osteoarthritis of left knee 06/07/2024 9:00 AM SUSTAINABILITY PROJECT MANAGER Therapy [facility] Occupational Therapy [address] [place] [phone] Stella Peraza OT Functional neurological symptom disorder with mixed symptoms (Primary Dx) 06/06/[address] [facility] Orthopaedic Surgery [id number] [place] [address] [address] [place] [phone] Sandra Schaeffer NP 06/06/[address] [facility] Orthopaedic Surgery [address] [place] [address] [address] [place] [phone] Sandra Schaeffer NP Question regarding MRI results 06/06/2024 8:53 AM SUSTAINABILITY PROJECT MANAGER - 06/06/2024 11:59 PM SUSTAINABILITY PROJECT MANAGER Hospital Encounter [facility] [address] [place] [address] Discharge Disposition: Discharge to home or self care from Last 3 Months Allergies Active Allergy Reactions Criticality Noted Date Comments Folic Acid Hives,Unknown Medium 04/19/2024 Methotrexate Hives,Unknown Medium 04/19/2024 Penicillin Unknown 04/19/2024 Penicillins Rash Medium 01/15/2016 Rosuvastatin Muscle pain,Unknown Medium 05/06/2023 Medications hydroCHLOROthiaz brandin (HYDRODIURIL) 25 mg tablet 11/06/2021 Active pravastatin (PRAVACHOL) 20 mg tablet Take 1 tablet (20 mg total) by mouth daily 12/30/2022 Active sertraline (ZOLOFT) 25 mg tablet Take 1 tablet (25 mg total) by mouth daily 12/16/2022 Active carvediloL (COREG) 12.5 mg tablet Take 1 tablet (12.5 mg total) by mouth 2 (two) times a day 12/16/2022 Active meloxicam (MOBIC) 15 mg tabletIndication s:Chronic pain of both knees Take 1 tablet (15 mg total) by mouth daily Take 1 daily with food 30 tablet 05/15/2024 Active Active Problems Problem Noted Date Diagnosed Date Effusion of left knee 07/03/2024 Chronic pain of left knee 07/03/2024 Arthritis of knee, left 08/20/2023 Back pain 04/19/2017 Assessment & Plan (05/31/2017 12:59 PM SUSTAINABILITY PROJECT MANAGER): Cardiac catheterization shows no obstructive coronary artery disease. Her episodes of chest pain are non anginal. She takes Humira and I was wondering that could be a side effect from Humira. She follows up with Rheumatology. Assessment & Plan (04/19/2017 10:25 AM CDT): Recently new onset chest pain about a month ago. Positive stress test. Hypokinesis of the lateral wall on echocardiogram as well. Discussed with the patient benefits and risks of cardiac catheterization and we will proceed with arranging cardiac catheterization with the plan from radial approach. Prescribe aspirin 81 mg daily. She is also taking Humira for her rheumatoid arthritis that can contribute to chest pain Dyspnea on exertion 04/19/2017 Assessment & Plan (05/31/2017 1:01 PM SUSTAINABILITY PROJECT MANAGER): Could be related to diastolic dysfunction. Will controlled blood pressure by increasing hydrochlorothiazide from 12.5 mg daily to 25 mg daily. Assessment & Plan (04/19/2017 10:22 AM CDT): He does have type 1 diastolic dysfunction on echocardiogram but normal pulmonary pressures. Observe for now and control high blood pressure Essential hypertension 04/19/2017 Assessment & Plan (05/31/2017 12:58 PM SUSTAINABILITY PROJECT MANAGER): Diastolic blood pressure is elevated. Increase hydrochlorothiazide from 12.5 mg daily to 25 mg daily 3 days after she stops taking the Bactrim. After increasing the hydrochlorothiazide we will repeat renal panel in 2-3 weeks after that. Assessment & Plan (04/19/2017 10:23 AM CDT): Controlled. Continue hydrochlorothiazide Pure hypercholesterolemia 04/19/2017 Assessment & Plan (05/31/2017 1:00 PM SUSTAINABILITY PROJECT MANAGER): Lipid panel today shows reduction of LDL from 162 to 108. She was having severe muscle cramps while she was taking Crestor 10 mg daily and currently she is taking 5 mg daily and tolerating that very well. Encourage diet and exercise. Assessment & Plan (04/19/2017 10:23 AM CDT): Patient will start on Crestor 10 mg p.o. Daily. Need reassess lipid panel in 2 months Long-term current use of hig h risk medication other than anticoagulant 01/11/2017 Arthralgia 01/11/2017 Rheumatoid arthritis 07/22/2016 Rheumatoid arthritis 07/22/2016 Overview (04/19/2024): Sees rheumatology. On Humira. Obesity with body mass index 30 or greater 07/21 Resolved Problems Problem Noted Date Diagnosed Date Resolved Date Bilateral lower extremity edema 04/29/2020 10/01/2020 Rheumatoid arthritis involvi ng multiple sites ([facility]) 01/11/2017 10/01/2020 Biliary dyskinesia 07/22/2016 Immunizations Name Administration Dates Next Due Moderna SARS-CoV-2 Monovalent Vaccination (12+ Y RS) 08/29/2020,08/29/2020 Pneumococcal Polysaccharide PPV23 04/08/2021 Tdap 07/08/2021 Social History Tobacco Use Types Packs/Day Years Used Date Smoking Tobacco: Never Passive Smoke Exposure: Never Smokeless Tobacco: Never Tobacco Cessation:Counseling Given: Not Answered Alcohol Use Standard Drinks/Week Comments No 0 [...] more drinks on one occasion? 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 Not on file Not on fi le Last Filed Vital Signs Vital Sign Reading Time Taken Comments Blood Pressure 116/72 03/06/2022 10:59 AM CDT Pulse 78 03/06/2022 10:59 AM CDT Temperature 37 C (98.6 F) 10/01/2020 7:48 AM CDT Respiratory Rate 16 05/13/2017 11:1 2 AM CDT Oxygen Saturation 98% 07/29/2020 10: 05 AM SUSTAINABILITY PROJECT MANAGER Inhaled Oxygen Concentration - - Weight 87.5 kg (193 lb) 07/03/2024 3:50 PM SUSTAINABILITY PROJECT MANAGER patient reported Height 167.6 cm (5' 6 ) 07/03/2024 3:50 PM SUSTAINABILITY PROJECT MANAGER patient reported Body Mass Index 31.15 07/03/2024 3:50 PM SUSTAINABILITY PROJECT MANAGER Plan of Treatment Not on file Procedures Procedure Name Priority Date/Time Associated Diagnosis Comments [place] ARTHROCENTESIS ASPIR&/INJ MAJOR JT/BURSA W/O US Routine 07/03/2024 3:10 PM SUSTAINABILITY PROJECT MANAGER Primary osteoarthritis of left knee Effusion of left knee XR ELBOW LEFT 3 OR MORE VIEWS Schedule Routine, Read Routine (OP Routine) 06/14/2024 9:10 AM SUSTAINABILITY PROJECT MANAGER Closed displaced fracture of neck of left radius with routine healing, subsequent encounter MRI KNEE LEFT WO CONTRAST Schedule Routine, Read Routine (OP Routine) 06/09/2024 12:39 PM SUSTAINABILITY PROJECT MANAGER Popliteal pain Chronic pain of both knees Primary osteoarthritis of left knee MSK MR OUTSIDE REFERENCE Routine 06/06/2024 8:53 AM SUSTAINABILITY PROJECT MANAGER SERUM HEPATITIS C AB Routine 11/06/2015 4:47 PM CDT from Last 3 Months or Most Recently Relevant to Health Maintenance Results * KS ARTHROCENTESIS ASPIR&/INJ MAJOR JT/BURSA W/O US (07/03/2024 3:10 PM SUSTAINABILITY PROJECT MANAGER) Narrative Blas Wilson IV, MD - 07/03/2024 3:10 PM SUSTAINABILITY PROJECT MANAGER Blas Wilson IV, MD 07/03/2024 4:20 PM Large Joint Injection: L knee Performed by: Blas Wilson IV, MD Authorized by: Blas Wilson IV, MD Large Joint Injection/Aspiration: Consent Given by: Patient Timeout: prior to procedure the correct patient, procedure, and site was verified Verbal consent obtained: Yes Supporting Documentation: Indications: Pain and joint swelling Procedure Details: Location: Knee Site: L knee Prep: patient was prepped using a clean technique Approach: Superior lateral Medications: 80 mg methylPREDNISolone acetate 80 mg/mL; 4 mL BUPivacaine 0.5 % (5 mg/mL); 4 mL lidocaine 10 mg/mL (1 %) Aspirate amount (mL): 11 Aspirate: Clear, serous and yellow Patient tolerance: Patient tolerated the procedure well with no immediate complications I discussed the risk and benefits of the injection with the patient including but not limited to the risk of infection, the risk of a flare and how to minimize it, and the risk of change in pigmentation at the injection site. us Blas Wilson IV, MD IN CLINIC/BEDSIDE ORD ERABLES Final Result * XR Elbow Left 3+ View (06/14/2024 9:10 AM SUSTAINABILITY PROJECT MANAGER) Anatomical Region Laterality Modality Upper Extremities, Elbow Left Compute d Radiography 06/14/2024 10:0 5 AM SUSTAINABILITY PROJECT MANAGER Impressions 06/14/2024 11:53 AM SUSTAINABILITY PROJECT MANAGER Healing, minimally displaced, transverse radial neck fracture. Dictated by: Hussain Villalpando M.D. The radiology attending physician has personally reviewed this study, and had reviewed and/or edited this written report and agrees with it. Electronically signed by: Cory Pérez D.O. Narrative 06/14/2024 11:53 AM SUSTAINABILITY PROJECT MANAGER EXAMINATION: XR ELBOW LEFT 3 OR MORE VIEWS HISTORY: Ground-level mechanical fall in early February 2024 with left radial neck fracture. COMPARISON: 05/24/2024, 02/29/2024 FINDINGS: Transverse, and minimally displaced radial neck fracture with slight interval increased bridging callus formation. No significant elbow joint effusion. Joint spaces are preserved. Procedure Note Cory Pérez DO - 06/14/2024 EXAMINATION: XR ELBOW LEFT 3 OR MORE VIEWS HISTORY: Ground-level mechanical fall in early February 2024 with left radial neck fracture. COMPARISON: 05/24/2024, 02/29/2024 FINDINGS: Transverse, and minimally displaced radial neck fracture with slight interval increased bridging callus formation. No significant elbow joint effusion. Joint spaces are preserved. IMPRESSION: Healing, minimally displaced, transverse radial neck fracture. Dictated by: Hussain Villalpando M.D. The radiology attending physician has personally reviewed this study, and had reviewed and/or edited this written report and agrees with it. Electronically signed by: Cory Pérez D.O. Dwight BURK IMG XR PROCEDURES Final Result * MRI Knee Left WO Contrast (06/09/2024 12:39 PM SUSTAINABILITY PROJECT MANAGER) Anatomical Region Laterality Modality Lower Extremities Left Magnetic Reson ance Sandra Prakash NP IMG MRI PROCED URES Final Result * MSK MR Outside Reference (06/06/2024 8:53 AM SUSTAINABILITY PROJECT MANAGER) Impressions RAD[facility]PACS[facility] - 06/06/2024 8:53 AM SUSTAINABILITY PROJECT MANAGER These images are for Reference purposes only and have not been reviewed by [facility] Radiology. There will be no report generated by a [facility] Radiologist. Narrative [facility] - 06/06/2024 8:53 AM SUSTAINABILITY PROJECT MANAGER EXAMINATION: Images For Reference Purposes Only us Sandra Prakash CREAM DUMPER IMG MRI PROCED URES Final Result Performing Organization Address [facility] Co de Phone Number [facility] * Serum Hepatitis C ab (11/06/2015 4:47 PM CDT) HCV ab Negative Negative HISTORICAL RESULTS Serum 11/06/2015 4:47 PM CDT us Alise Kaur MD LAB BLOOD ORDERABLES Final Resul t Performing Organization Address [facility] Co de Phone Number HISTORICAL RESULTS from Last 3 Months or Most Recently Relevant to Health Maintenance Insurance [employer] OPEN ACCESS PENDING SALE TO [facility] [id number] PENDING SALE TO [facility] [id number] Care Teams Rolled Gold Plater Relationship Specialty Start Date End Date Tyler Pinedo MD [address] [place] [address] PCP - General Internal Medicine 05/10/21 Valarie Ng MD [address] [address] Referring Physician Gynecology 12/22/22
--- OUTSIDE RECORDS SUMMARY | 2024-08-26 09:49 | XMS_ITS | Encounter Summary ---
Author Organization [facility] Healthcare Address [address] [place] [address] Care Team Providers Care Curatorial Assistant Name Role Phone Lady Birmingham MD Primary Care Provider Reason for Visit * Diagnostic Imaging (Routine) - Closed Specialty Diagnoses / Procedures Referred By Heena sánchez Referred To Contact Diagnoses Mass of right breast, unspecified quadrant Procedures Breast Imaging Screening Outside Reference Sruthi Boles NP [address] [facility] [id number] [place] [address] Phone: tel: fax: Referral ID Status Reason Start Date Expiration Date Visits Re quested Visits Authorized [id number] Closed 01/04/2023 02/03/2024 1 1 Encounter Details Date Type Department Care Team (Late st Contact Info) Description 09/19/2016 Hospital Encounter [facility] [address] [place] [phone] Social History Tobacco Use Types Packs/Day Years [...] more drinks on one occasion? 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 There will be no report generated by a [facility] Radiologist. Narrative [facility]_MAMMO[facility] - 01/04/2023 4:20 PM CDT EXAMINATION: Images For Reference Purposes Only us Sruthi Boles NP IMG MAMMO PROCEDURES Final Result [facility] documented in this encounter Visit Diagnoses Not on filedocumented in this encounter Care Teams Curatorial Assistant Relationship Specialty Start Date End Date Lady Birmingham MD [address] [facility] [address] [place] [id number] PCP - General 11/06/15 04/08/17 documented as of this encounter
--- OUTSIDE RECORDS SUMMARY | 2024-08-26 09:49 | XMS_ITS | Encounter Summary ---
Author Organization [facility] Address [address] [place] [address] Care Team Providers Care Manual Arts Teacher Name Role Phone Tyler Pinedo MD Primary Care Provider [phone] Encounter Details Date Type Department Care Team (Latest Contact Info) Description 08/25/2024 Travel Social History Tobacco Use Types Packs/Day Years Used Date Smoking Tobacco: Never Passive Smoke Exposure: Never Smokeless Tobacco: Never Comments:counseled by Dr Thu pollock Alcohol Use Standard Drinks/Week Comments Yes 3.3 (1 standard drink = 0.6 oz p ure alcohol) [facility] Utilities Answer Date Recorded In the past 12 months has [employer] electric, gas, oil, or water [employer] threatened to shut off services in your [...] place to sleep or slept in a chcf (including now)? 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 Answer Date of Assessment Author Status No 10/22/2023 4:34 PM CDT Rebekah Giraldo R N Active * Do you have serious difficulty walking or climbing stairs? Answer Date of Assessment Author Status No 10/22/2023 4:34 PM CDT Rebekah Giraldo R N Active * Do you have difficulty dressing or bathing? Answer Date of Assessment Author Status Yes 10/22/2023 4:34 PM CDT Rebekah Giraldo R N Active * Because of a physical, mental, or emotional condition, do you have difficulty doing errands alone such as visiting a doctor's office or shopping? Answer Date of Assessment Author Status No 10/22/2023 4:34 PM CDT Rebekah Giraldo R N Active documented as of this encounter Mental Status * Because of a physical, mental, or emotional condition, do you have serious difficulty concentrating, remembering, or making decisions? Answer Entry Date Author Status No 10/22/2023 4:34 PM CDT Rebekah Giraldo R N Active documented in this encounter Plan of Treatment Upcoming Encounters Date Type Department Care Team (Late st Contact Info) Description 09/08/2024 11:00 AM MECHANICAL INTERN Office Visit [facility] Physical Therapy [address] [place] [address] Diana Boyd, [place] [address] 09/22/2024 11:00 AM MECHANICAL INTERN Office Visit [facility] Physical Therapy [address] [place] [address] Diana [place] [address] 11/08/2024 8:20 AM CDT Office Visit [facility] Medical Group [facility]ialty Care [place] [address] [address] [place] [address] Tyler Pinedo MD [address] [place] [address] documented as of this encounter Visit Diagnoses Not on filedocumented in this encounter Additional Health Concerns Assessment Noted Time PHQ-9 Depression Total Score: 3 10/18/19 24 12:15 PM CDT documented as of this encounter Care Teams Manual Arts Teacher Relationship Specialty Start Date End Date Tyler Pinedo MD [address] [address] PCP - General INTERNAL MEDICINE 03/25/21 documented as of this encounter
--- OUTSIDE RECORDS SUMMARY | 2024-08-26 09:49 | XMS_ITS | Clinical Summary ---
Author Organization [facility] Address [address] [place] [address] Phone Care Team Providers Care Business Development Assistant Name Role Phone Tyler Pinedo MD Primary Care Provider [phone] Valarie Ng MD Unavailable [phone] Allergies Active Allergy Reactions Criticality Noted Date [...] 04/19/2017 Assessment & Plan (05/31/2017 12:59 PM FLAKER TENDER): Cardiac catheterization shows no obstructive coronary artery [...] 04/19/2017 Assessment & Plan (05/31/2017 1:01 PM FLAKER TENDER): Could be related to diastolic dysfunction. Will controlled blood pressure by increasing hydrochlorothiazide from 12.5 mg daily to 25 mg daily. Assessment & Plan (04/19/2017 10:22 AM CDT): He does have type 1 diastolic dysfunction on echocardiogram but normal pulmonary pressures. Observe for now and control high blood pressure Essential hypertension 04/19/2017 Assessment & Plan (05/31/2017 12:58 PM FLAKER TENDER): Diastolic blood pressure is elevated. Increase hydrochlorothiazide from 12.5 mg daily to 25 mg daily 3 days after she stops taking the Bactrim. After increasing the hydrochlorothiazide we will repeat renal panel in 2-3 weeks after that. Assessment & Plan (04/19/2017 10:23 AM CDT): Controlled. Continue hydrochlorothiazide Pure hypercholesterolemia 04/19/2017 Assessment & Plan (05/31/2017 1:00 PM FLAKER TENDER): Lipid panel today shows reduction of LDL [...] 10/01/2020 Rheumatoid arthritis involvi ng multiple sites ([facility]) 01/11/2017 10/01/2020 Biliary dyskinesia 07/22/2016 Encounters Date Type Department Care Team Description 07/21/2024 Telephone [facility] Orthopaedic Surgery [address] [place] [phone] Cara Chavez BS 07/07/2024 11:00 AM FLAKER TENDER Therapy [facility] Occupational Therapy [address] [place] [address] Stella Peraza, JUVE Functional neurological symptom disorder with mixed symptoms (Primary Dx) 07/03/2024 3:10 PM FLAKER TENDER Office Visit [facility] Orthopaedic Surgery [facility] 12th [place] [address] [place] [phone] Blas Wilson IV, MD Primary osteoarthritis of left knee (Primary Dx); Effusion of left knee; Chronic pain of left knee 06/14/2024 9:00 AM FLAKER TENDER - 06/14/2024 11:59 PM FLAKER TENDER Hospital Encounter [facility] [address] [place] [address] Closed displaced fracture of neck of left radius with routine healing, subsequent encounter Discharge Disposition: Discharge to home or self care 06/14/2024 8:45 AM FLAKER TENDER Office Visit [facility] Orthopaedic Surgery [address] [place] [address] [address] [place] [address] Dwight Lutz PA Closed displaced fracture of neck of left radius with delayed healing, subsequent encounter (Primary Dx) 06/14/2024 Orders Only [facility] Orthopaedic Surgery [address] [place] [phone] Cara Chavez BS Closed displaced fracture of neck of left radius with delayed healing, subsequent encounter (Primary Dx) 06/12/2024 Orders Only [facility] Orthopaedic Surgery [facility] [place] [address] Sandra Schaeffer NP Popliteal pain; Chronic pain of both knees; Primary osteoarthritis of left knee 06/07/2024 9:00 AM FLAKER TENDER Therapy [facility] Occupational Therapy [address] [place] [address] Stella Peraza OT Functional neurological symptom disorder with mixed symptoms (Primary Dx) 06/06/2024 8:53 AM FLAKER TENDER - 06/06/2024 11:59 PM FLAKER TENDER Hospital Encounter [facility] [address] [place] [address] Discharge Disposition: Discharge to home or self care 06/06/2024 Telephone [facility] Orthopaedic Surgery [address] [place] [address] [address] [place] [phone] Sandra Schaeffer NP 06/06/2024 Telephone [facility] Orthopaedic Surgery [address] [place] [address] 2[address] [place] [address] Sandra Schaeffer NP Question regarding MRI results from Last 3 Months Immunizations Name Administration Dates Next Due Moderna SARS-CoV-2 Monovalent Vaccination (12+ Y RS) 08/29/2020,08/29/2020 Pneumococcal Polysaccharide PPV23 04/08/2021 Tdap 07/08/2021 Surgical History Surgery Date Site/Laterality Comments TOTAL ABDOMINAL HYSTERECTOMY Hysterectomy, total CHOLECYSTECTOMY TONSILLECTOMY SECTION 03/28/1993 JOINT REPLACEMENT 10/2023 Medical History Medical History Date Comments Hx Other Medical left knee menis deidre repair Hx Other Medical rheumatoid arth ritis Hyperlipidemia Hypertension Bilateral lower extremity edema 04/29/2020 Biliary dyskinesia 07/22/2016 Rheumatoid arthritis involvi ng multiple sites (CMS/HCC) (HCC) 01/11/2017 Diabetes mellitus (HCC) Autoimmune disease ([facility]) ([facility]) Kidney stone 2004 Family History Medical History Relation Name Comments Hypertension Father Colon cancer Maternal Grandfather Tristin Roland Heart disease Maternal Grandfather Tristin Roland Dementia Maternal Grandmother Alzheimer's disease Mother Ursula Mckeon Arthritis Mother Ursula Mckeon Dementia Mother Ursula Mckeon Depression Mother Ursula Mckeon Heart attack Paternal Grandfather Tristin Roland Relation Name Status Comments Father Maternal Grandfather Tristin Roland Alive Maternal Grandmother Mother Ursula Mckeon Alive Paternal Grandfather Tristin Roland Social History Tobacco Use Types Packs/Day Years [...] more drinks on one occasion? 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 Not on file Not on fi le Obstetrics History Last Filed Vital Signs Vital Sign Reading Time Taken Comments Blood Pressure 116/72 03/06/2022 10:59 AM CDT Pulse 78 03/06/2022 10:59 AM CDT Temperature 37 C (98.6 F) 10/01/2020 7:48 AM CDT Respiratory Rate 16 05/13/2017 11:1 2 AM CDT Oxygen Saturation 98% 07/29/2020 10: 05 AM FLAKER TENDER Inhaled Oxygen Concentration - - Weight 87.5 kg (193 lb) 07/03/2024 3:50 PM FLAKER TENDER patient reported Height 167.6 cm (5' 6 ) 07/03/2024 3:50 PM FLAKER TENDER patient reported Body Mass Index 31.15 07/03/2024 3:50 PM FLAKER TENDER Plan of Treatment Health Maintenance Due Date Last Done Comments Breast Cancer Screening-Mammogram 1964 Colon Cancer Screening-Colonoscopy 1964 Depression Screening 1964 Hepatitis B Screening 1982 Regular Well Visit/Exam 18-64 1982 Zoster Vaccine (1 of 2) 2014 Covid-19 Vaccine ( season) 2024 05/13/2023, 06/09/2021, 10/08/2020, Additional history exists DTaP/Tdap/Td Vaccine (2 - Td or Tdap) 07/08/2031 07/08/2021 Hepatitis C Screening Completed 11/06/2015 Pneumococcal vaccine <65 Aged Out 08/17/2022, 03/20 No longer eligible based on patient's age to complete this topic Influenza Vaccine Completed 05/01/2024, , 05/13/2022 Procedures Procedure Name Priority Date/Time Associated Diagnosis Comments TX ARTHROCENTESIS ASPIR&/INJ MAJOR JT/BURSA W/O US Routine 07/03/2024 3:10 PM FLAKER TENDER Primary osteoarthritis of left knee Effusion of left knee XR ELBOW LEFT 3 OR MORE VIEWS Schedule Routine, Read Routine (OP Routine) 06/14/2024 9:10 AM FLAKER TENDER Closed displaced fracture of neck of left radius with routine healing, subsequent encounter MRI KNEE LEFT WO CONTRAST Schedule Routine, Read Routine (OP Routine) 06/09/2024 12:39 PM FLAKER TENDER Popliteal pain Chronic pain of both knees Primary osteoarthritis of left knee MSK MR OUTSIDE REFERENCE Routine 06/06/2024 8:53 AM FLAKER TENDER SERUM HEPATITIS C AB Routine 11/06/2015 4:47 PM CDT from Last 3 Months or Most Recently Relevant to Health Maintenance Results * TX ARTHROCENTESIS ASPIR&/INJ MAJOR JT/BURSA W/O US (07/03/2024 3:10 PM FLAKER TENDER) Narrative Blas Wilson IV, MD - 07/03/2024 3:10 PM FLAKER TENDER Blas Wilson IV, MD 07/03/2024 4:20 PM [...] change in pigmentation at the injection site. Blas Wilson IV, MD IN CLINIC/BEDSIDE ORD ERABLES Final Result * XR Elbow Left 3+ View (06/14/2024 9:10 AM FLAKER TENDER) Anatomical Region Laterality Modality Upper Extremities, Elbow Left Compute d Radiography 06/14/2024 10:0 5 AM FLAKER TENDER Impressions 06/14/2024 11:53 AM FLAKER TENDER Healing, minimally displaced, transverse radial neck fracture. Dictated by: Hussain Villalpando M.D. The radiology attending physician has personally reviewed this study, and had reviewed and/or edited this written report and agrees with it. Electronically signed by: Cory Pérez D.O. Narrative 06/14/2024 11:53 AM FLAKER TENDER EXAMINATION: XR ELBOW LEFT 3 OR MORE [...] Knee Left WO Contrast (06/09/2024 12:39 PM FLAKER TENDER) Anatomical Region Laterality Modality Lower Extremities Left Magnetic Reson ance Sandra Prakash NP IMG MRI PROCED URES Final Result * MSK MR Outside Reference (06/06/2024 8:53 AM FLAKER TENDER) Impressions RAD_PACS_[facility] - 06/06/2024 8:53 AM FLAKER TENDER These images are for Reference purposes only and have not been reviewed by [facility] Radiology. There will be no report generated by a [facility] Radiologist. Narrative RAD_PACS_[facility] - 06/06/2024 8:53 AM FLAKER TENDER EXAMINATION: Images For Reference Purposes Only us Sandra Prakash TELEPHONE QUOTATION CLERK IMG MRI PROCED URES Final Result RAD_PACS_[facility] * Serum Hepatitis C ab (11/06/2015 4:47 PM CDT) HCV ab Negative Negative HISTORICAL RESULTS Serum 11/06/2015 4:47 PM CDT us Alise Kaur MD LAB BLOOD ORDERABLES Final Resul t HISTORICAL RESULTS from Last 3 Months or Most Recently Relevant to Health Maintenance Insurance [employer] OPEN ACCESS [facility] [id number] [facility] [id number] Care Teams Business Development Assistant Relationship Specialty Start Date End Date Tyler Pinedo MD [address] [place] [address] PCP - General Internal Medicine 05/10/21 Valarie Ng MD [address] [id number] Referring Physician Gynecology 12/22/22
--- OUTSIDE RECORDS SUMMARY | 2024-08-26 09:49 | XMS_ITS | Patient Health Record ---
Author Organization [facility] Address [address] [place] [address] Care Team Providers Care Aircraft Maintenance Director Name Role Phone Khris AUSTIN, Tyler Primary Care Provider Alise Madsen Unavailable [phone] Allergies Allergen (clinical drug ingredient) Drug/Non Drug Allergy documented on EMR Reaction Allergy Type Onset Date Status folic acid Folic Acid Unknown Drug Allergy Activ e methotrexate Methotrexate Unknown Drug Allergy A ctive Penicillin Unknown Drug Allergy Active rosuvastatin Rosuvastatin Unknown Drug Allergy A ctive Reason For Referral No Information Plan Of Treatment No Information Insurance Providers Payer Name Payer Address Payer Phone Subscriber Number Group Number Insured Name Patient Relationship to Insured Coverage Start Date Coverage End Date [employer] - Open Access [address] [place], [place] [id number] Rebekah Contreras Self - patient is the insured Medical (General) History Medical History History ICD Code rheumatoid arthritis, hypert ension, hyperlipidemia, anxiety, depression, kidney stones, essential tremor, fatty liver Surgical History Surgery Date(Month/Year) hysterectomy, cholecystectom y, C section, uterine fibroid removal knee surgery, cardiac cath, tonsillectomy
--- OUTSIDE RECORDS SUMMARY | 2024-08-26 09:49 | XMS_ITS | Encounter Summary ---
Author Organization [facility] Healthcare Address [address] [place] [address] Care Team Providers Care Performance Manager Name Role Phone Unavailable Primary Care Provider Unavailabl e Reason for Visit * Diagnostic Imaging (Routine) - Closed Specialty Diagnoses / Procedures Referred By Contac t Referred To Contact Procedures Breast Imaging Screening Outside Reference Sruthi Boles NP [address] [facility] [phone] [place] [address] Phone: tel: fax: Referral ID Status Reason Start Date Expiration Date Visits Re quested Visits Authorized [id number] Closed 01/04/2023 02/03/2024 1 1 Encounter Details Date Type Department Care Team (Late st Contact Info) Description 05/18/2014 Hospital Encounter [facility] [address] [place] [address] Social History Tobacco Use Types Packs/Day [...] more drinks on one occasion? 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 There will be no report generated by a [facility] Radiologist. Narrative RAD_MAMMO_[facility] - 01/04/2023 4:21 PM CDT EXAMINATION: Images For Reference Purposes Only us Sruthi Boles NP IMG MAMMO PROCEDURES Final Result [facility]MAM[facility] documented in this encounter Visit Diagnoses Not on filedocumented in this encounter
--- OUTSIDE RECORDS SUMMARY | 2024-08-26 09:49 | XMS_ITS | Encounter Summary ---
Author Organization [facility] Address [facility] [place] [address] Care Team Providers Care Crop Farm Helper Name Role Phone Tyler Pinedo MD Primary Care Provider [phone] Encounter Details Date Type Department Care Team (Latest Contact Info) Description 05/16/2023 [facility] Medical Group Multispecialty Care - [place] [address] [place] [address] [address] [place], [place] [phone] [place] [address] [place] [address] [address] [place] [address] Lab work results Social History Tobacco Use Types Packs/Day Years Used Date Smoking Tobacco: Never Smokeless Tobacco: Never Comments:counseled by Dr Thu pollock Alcohol Use Standard Drinks/Week Comments Not Currently 0 (1 standard drink = 0.6 oz pur e alcohol) AUDIT-C Answer Date Recorded Q1: How often do you have a drink containing alc ohol? Monthly or less 10/21/2020 Q2: How many drinks containi ng alcohol do you have on a typical day when you are drinking? 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 file documented as of this encounter Plan of Treatment Upcoming Encounters Date Type Department Care Team (Late st Contact Info) Description 09/08/2024 11:00 AM LEATHER PRODUCTION ARTISAN Office Visit [facility] Physical Therapy [facility] [address] Diana Boyd, [place] [address] 09/22/2024 11:00 AM LEATHER PRODUCTION ARTISAN Office Visit [facility] Physical Therapy [address] [place] [address] Diana Boyd, [place] [address] 11/08/2024 8:20 AM CDT Office Visit [facility] Medical Group Multispecialty Care [place] [address] [address] [place] [address] Tyler Pinedo MD [address] [place] [address] documented as of this encounter Visit Diagnoses Not on filedocumented in this encounter Additional Health Concerns Assessment Noted Time PHQ-9 Depression Total Score: 4 01/14/20 23 9:30 AM CDT documented as of this encounter Care Teams Crop Farm Helper Relationship Specialty Start Date End Date Tyler Pinedo MD [address] [place] [address] PCP - General INTERNAL MEDICINE 03/25/21 documented as of this encounter
--- OUTSIDE RECORDS SUMMARY | 2024-08-26 09:49 | XMS_ITS | Encounter Summary ---
Author Organization [facility] Address [address] [place] [address] Care Team Providers Care Mill Operator Helper Name Role Phone Tyler Pinedo MD Primary Care Provider [phone] Reason for Visit * Reason Comments Generalized Weakness * Physical Medicine (Routine) - Authorized Specialty Diagnoses / Procedures Referred By Contac t Referred To Contact PHYSICAL THERAPY / [facility] Physical Therapy Diagnoses Functional movement disorder Procedures OFFICE/OUTPATIENT NEW LOW MDM 30-44 MINUTES OFFICE/OUTPT VISIT,NEW,LEVL IV OFFICE/OUTPT VISIT,NEW,LEVL V OFFICE/OUTPT VISIT,EST,LEVL III OFFICE/OUTPT VISIT,EST,LEVL IV OFFICE/OUTPT VISIT,EST,LEVL V Tyler Pinedo MD [address] [address] Phone: tel: fax: [facility] [address] [address] Phone: tel: fax: Referral ID Status Reason Start Date Expiration Date Visits Requested Visits Authorized [id number] Authorized Physical Therapy 07/27/2025 10 10 Encounter Details Date Type Department Care Team (Latest Contact Info) Description 08/25/2024 11:00 AM LASER SET UP OPERATOR Office Visit [facility] [address] [address] Tyler Pinedo MD [address] [address] Diana Boyd, [place] [address] Generalized Weakness Social History Tobacco Use Types Packs/Day Years Used Date Smoking Tobacco: Never Passive Smoke Exposure: Never Smokeless Tobacco: Never Comments:counseled by Dr Thu pollock Alcohol Use Standard Drinks/Week Comments Yes 3.3 (1 standard drink = 0.6 oz p ure alcohol) [facility] Utilities Answer Date Recorded In the past 12 months has e [employer], gas, oil, or water [employer] threatened to shut off services in your [...] place to sleep or slept in a long-term (including now)? 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 Answer Date of Assessment Author Status No 10/22/2023 4:34 PM CDT Kristal Rebekah S, R N Active * Do you have serious difficulty walking or climbing stairs? Answer Date of Assessment Author Status No 10/22/2023 4:34 PM CDT Kristal Rebekah S, R N Active * Do you have difficulty dressing or bathing? Answer Date of Assessment Author Status Yes 10/22/2023 4:34 PM CDT Pankajs Rebekah S, R N Active * Because of a [...] R N Active documented in this encounter Patient Instructions * Patient Instructions* Diana Boyd, PT - 08/25/2024 11:00 AM LASER SET UP OPERATOR Access Code: [email or web address] URL: [email or web address] Date: 08/25/2024 Prepared by: Diana Boyd Exercises - Seated Gaze Stabilization with Head Rotation - 1 x daily - 7 x weekly - 2 sets - Seated Horizontal Smooth Pursuit - 1 x daily - 7 x weekly - 2 sets - Seated Gaze Stabilization with Head Nod - 1 x daily - 7 x weekly - 2 sets R SET UP OPERATOR documented in this encounter Progress Notes * Diana Boyd, PT - 08/25/2024 11:00 AM CST Physical Therapy Daily Progress Treatment Note: Patient Name: Rebekah Contreras : 1965 Diagnosis: SNOMED CT(R) 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 General weakness ASTHENIA 3. Leg pain PAIN IN LOWER LIMB 4. Left shoulder pain PAIN OF LEFT SHOULDER REGION Treatment Day: 4 Total Approved Visits: 10 Current Therapy Orders: eval and treat for FMD Referring Provider: Tyler Bonilla MD Visit: 07/21/24 Therapy Plan of Care: promote normal movement patterns to retrain neural pathways Precautions/Restrictions: underlying FMD Medical History: FMD, preDM, HTN, HLD,left knee pain Current Home Exercise Program: AROM and stretching toes if able Tripod of foot Weight shifting gently to UE to aid with healing Pacing hand out Walking time reduced Start Time: 1100 End Time: 1145 SUBJECTIVE The patient relates she has a headache today and her ankle hurts. Pain level at 7/10 to her legs and left ankle. Compliance to Home Program: trying to do something every day Functional changes since last visit: ankle pain Reported Falls since last visit: none Medications changes since last visit: none OBJECTIVE Patient verbalizes consent to treatment today and agreeable to today's plan of care. Treatment provided today: Neuromuscular Re-education - 23400 Number of Minutes - 97334: 25 Intervention: VOR vertical and horizontal 2 x 30 sec ea, some dizziness with vertical Intervention: smooth pursuit 2 x 30 sec Intervention: serratus activation cues to squeeze armpits and make back wide, pressing into ball while seated Intervention: wall angels with ball to back x 3 before left arm hurts, cues to float up Intervention: held sidelying diaphragmatic breathing on left side Intervention: held toe movement in and out and flex and extend Intervention: held review tripod of foot(release arch) Intervention: held seated hip adduction and iliacus pull back Intervention: next visit hamstring activation Intervention: Done to facilitate pelvic and scapular stability in closed chain positions, improve diaphragmatic facilitation of movement, regulate autonomic response, improve upper and lower extremity proprioception Therapeutic Exercise - 83860 Number of Minutes - 60380: 15 Exercise: held nu step 6 min seat 11 Exercise: held standing heel stretch knees soft and cues to press toes Exercise: seated cat cow pressing into swazi ball on chair Exercise: hug self for reverse fly Exercise: rowing scapular retraction ball to back intention on pulling shoulder blades together Exercise: shoulder ER (elbow creases forward) Exercise; seated thoracic rotation with adduction of hips Exercise: held reverse fly (no band) cues for scap retract Exercise: held chest fly red band x 8 Exercise: held shoulder extension isometric walk back with scapular retract and depress and neck rotation red band Exercise: held sidelying thoracic rotation both UE 5 on right side and 2 on left Exercise: held standing side to wall and rotate away with outside leg fwd Done to improve UE, LE, core strength and flexibility Therapeutic Activities - 31726 Number of Minutes - 41341: held Intervention: marching for hip flexion Intervention: marching right for knee extension left Intervention: ankle movement on foam: cues for toe spread and then for toe press to assist with gait Intervention: held it to stand cues to extend at top with hips to stick Intervention: seated trunk rotation with adduction and band, cues for head fwd or to rotate with body, cues for exhale with movement Done to improve functional transitions and ease of transfers ASSESSMENT Emphasis on UE extremity today and stayed seated mostly due to ankle pain. Addressed thoracic extension and flexion and rotation to aid with shoulder and assist with gait. Addressed oculomotor movement to assist with symptoms of dizziness. Tends to compensate with looking up activities. Added eye activities to HEP. Also addressed serratus activation to aid with upper trap tightness and headache. Less eye soreness after session. Educated on HEP with hand outs. Educated on elevation and gentle ankle and foot movement for ankle pain. Pt continues to demonstrate impaired breathing, gait, posture,UE and LE movement, which limits activity tolerance and ADL function. Continue PT per plan. Short Term Goals: to be met in 6 visits Progressing Increase ROM/ flexibility of left shoulder, left knee, right hip and both feet with reduce pain. Addressed today Good Posture/body Mechanics to aid with proprioception and movement Progressing some what Decrease pain to joints 25-50% Not met Decrease muscle spasm/tissue tension to allow ease of use of left arm for functional tasks PLAN Changes: addressed oculomotor and reviewed thoracic and scapular movement. Added serratus today. Next Visit Plan:Recheck movement next visit since not feeling well today. Resume LE activities if able. Review oculomotor activities. Total Time in Minutes: 40 Timed Code Treatment Minutes: 40 R SET UP OPERATOR documented in this encounter Plan of Treatment Upcoming Encounters Date Type Department Care Team (Late st Contact Info) Description 09/08/2024 11:00 AM LASER SET UP OPERATOR Office Visit [facility] [address] [address] Diana Boyd, [place] [address] 09/22/2024 11:00 AM LASER SET UP OPERATOR Office Visit [facility] [address] [address] Diana Boyd, [place] [address] 11/08/2024 8:20 AM CDT Office Visit [facility] Multispecialty Care - [address] [place] [address] Tyler Pinedo MD [address] [address] documented as of this encounter Visit Diagnoses Diagnosis Functional movement disorder- Primary Other extrapyramidal disease and abnormal movement disorder General weakness Other malaise and fatigue Leg pain Pain in limb Left shoulder pain Pain in joint, shoulder region documented in this encounter Additional Health Concerns Assessment Noted Time PHQ-9 Depression Total Score: 3 10/18/19 24 12:15 PM CDT documented as of this encounter Care Teams Mill Operator Helper Relationship Specialty Start Date End Date Tyler Pinedo MD [address] [place] [address] PCP - General INTERNAL MEDICINE 03/25/21 documented as of this encounter
--- OUTSIDE RECORDS SUMMARY | 2024-08-26 09:50 | XMS_ITS | Patient Health Summary ---
Author Organization [facility] Address [address] [facility] [place] [address] Care Team Providers Care Tuna Purse Seiner Name Role Phone Phoebe Mcclelland MD Primary Care Provider [phone] Note from [facility],non-owned Affiliates and Associated Physician Practices is amultiple site organization consisting of ambulatory clinics and hospital sitesin [place], [place], [place] and [place]. This disclosure is being madepursuant to the Care Everywhere program and may not contain all information available regarding this patient. Last updated 18.[facility] Social History Tobacco Use Types Packs/Day Years Used Date Smoking Tobacco: Never Assessed Sex and Gender Information Value Date Recorded Sex Assigned at Not on file Gender Identity Not on file Sexual Orientation Not on file Procedures * UT LIVER ELASTOGRAPHY(Performed 06/18/2021) Performed for Fatty liver * SKIN TEST PPD - POINT OF CARE(Performed 05/29/2016) Performed for Screening examination for pulmonary tuberculosis Results * UT LIVER ELASTOGRAPHY (06/18/2021 11:28 AM MANAGER CASE MANAGEMENT) Narrative Ramiro Prasad MD - 06/18/2021 11:28 AM MANAGER CASE MANAGEMENT Ramiro Prasad MD 06/18/2021 4:41 PM Diagnosis: Fatty Liver RN verified patient not , no implanted devices and NPO for prior 3 hours. Procedure explained and consent signed. Date of Exam: 06/18/2021 Liver Stiffness: (LSM, kPa) median: 4.5 IQR (interquartile range): 0.8 IQR/Median% (ideally < 30%): 18 CAP (controlled attenuation parameter): 190 Technical Difficulty: None Ordering Provider: Bud Garibay Fibroscan interpretation: I have personally reviewed the Fibroscan report and associated tracings. The calculated Liver Stiffness Measurement (LSM, kPa) indicates that: The probability of advanced liver fibrosis is: low. The loss of ultrasound signal, (controlled attenuation parameter, CAP [dB/m]), indicates that the probability of hepatic steatosis is: low. Ramiro Prasad MD The following criteria are used to indicate the probability of advanced (stage 3-4) fibrosis: < 7.0 kPa: low 7.0-8.9 kPa: low to moderate 9.0-14.9 kPa: moderate 15-20 kPa: high > 20 kPa: very high Liver stiffness > 20 kPa is also associated with a high probability of complications of portal hypertension including varices and ascites. Liver stiffness > 50 kPa is associated with a high risk of variceal bleeding. These interpretations are based on the following published data: Viky PJ, Regi M, Tyra M, et al. Accuracy of FibroScan controlled attenuation parameter and liver stiffness measurement in assessing steatosis and fibrosis in patients with nonalcoholic fatty liver disease. Gastroenterology 2019;156:1678-5373. Stuart MS, Ligia R, Van Davidson ML, et al. Vibration-controlled transient elastography to assess fibrosis and steatosis in patients with nonalcoholic fatty liver disease. Clin Gastroenterol Hepatol 2019;17:156-163. Note: 1. Fibroscan cannot reliably identify earlier stages of fibrosis (ie distinguish F0 from F1 and F2) and thus a histologic stage cannot be predicted from the Fibroscan reading. 2. Assessing the likelihood of advanced fibrosis in patients with indeterminate liver stiffness measurement (LSM) by Fibroscan (e.g., 8-15 kPa) can be improved by also calculating the FIB4 score (Davyduke et al. Hepatology Communications 2019;3:6053-4219) or NAFLD Fibrosis score (Cleaning et al. Clinical Gastroenterology and Hepatology 2019;17:6960-8525. from routine clinical data. 3. Liver stiffness can be increased by factors other than fibrosis including passive congestion, infiltrative processes, active alcoholism, biliary obstruction and marked inflammation. The interpretation of the Fibroscan result provided above may not have taken such clinical factors into account. Disease etiology also influences Fibroscan cutoff values for fibrosis stages and the following cutoffs have been proposed (Samara et al, Clin Gastro Hepatol 2015; 13:27-36): Cutoffs for Stage 3 and Stage 4 fibrosis respectively: Hepatitis B: >9 and >11.7 kPa Hepatitis C: >9.5 and >12.5 kPa HCV-HIV: >11 and >14 kPa Cholestatic liver diseases: >10 and >17.9 kPa NAFLD/BAHENA: >10 and >14 kPa CAP estimates of steatosis: normal <200 dB/m mild 200 to 250 dB/m moderate 250-290 dB/m substantial > 290 dB/m (Note that Fibroscan is not a quantitative measure of liver fat.) These criteria are estimates and may change as additional supporting data becomes available. [email or web address] Ramiro Lind MD PROCEDURE/ MINOR SURGICAL ORDERABLES * SKIN TEST PPD - POINT OF CARE (05/29/2016) PPD negative MISCELLANEOUS SAMPLE S / Unknown 05/29/2016 Brendon Bender GRAPE CUTTER-TARGET NETWORK ANALYST LAB - POINT OF CARE ORDERABLES Care Teams Tuna Purse Seiner Relationship Specialty Start Date End Date Phoebe Mcclelland MD [address] [facility] [place] [place] [address] PCP - General 06/03/21
--- OUTSIDE RECORDS SUMMARY | 2024-08-26 09:50 | XMS_ITS | Clinical Summary ---
Author Organization [facility] Address [address], [facility] [address] [place] [address] Phone Care Team Providers Care Glass Rolling Machine Operator Name Role Phone Telma Adame Primary Care Provider Valarie Ng MD Unavailable [phone] Medications polyethylene glycol (MIRALAX) Powder Use entire 255g bottle with 64oz of clear liquid as directed for colonoscopy prep. 255 g 0 7 Active polyethylene glycol (MIRALAX) Powder Use entire 255g bottle with 64oz of clear liquid as directed for colonoscopy prep. 255 g 0 7 Active Social History Tobacco Use Types Packs/Day Years Used Date Smoking Tobacco: Never Assessed Comments Unknown Sex and Gender Information Value Date Recorded Sex Assigned at Not on file Legal Sex Female 4:21 PM FIBRE COMPOSITE TECHNICIAN Gender Identity Not on file Sexual Orientation Not on file Plan of Treatment Health Maintenance Due Date Last Done Comments Hepatitis C Virus (HCV) Screening 1965 TdaP Immunization 1965 Hepatitis B Immunization (1 of 3 - 19+ 3-dose series) 1983 Pap Smear 1985 Cervical Cancer Screening (CCS) 1994 HPV/Cotest 1994 Cologuard 2014 Immunochemical Fecal Occult Blood 2014 Mammogram 2014 Pneumococcal Immunization (5 0+ years) (1 of 1 - PCV) 2014 Zoster Immunization (1 of 2) 2014 Colonoscopy 12/21/2021 12/21/2016 Colorectal Cancer Screening 12/21/2021 Influenza Immunization (#1) 2024 SARS-COV-2 Immunization ( season) 2024 Respiratory Syncytial Virus (RSV) Immunization (Adult) (1 - 1-dose 75+ series) 2039 12/21/2016 Meningococcal Immunization (ACWY) Aged Out No longer eligible based on patient's age to complete this topic Pneumococcal Immunization Combined Aged Out No longer eligible based on patient's age to complete this topic Rotavirus Immunization Aged Out No lo nger eligible based on patient's age to complete this topic Procedures Procedure Name Priority Date/Time Associated Diagnosis Comments COLONOSCOPY Routine 12/21/2016 from Last 3 Months or Most Recently Relevant to Health Maintenance Results * COLONOSCOPY (12/21/2016) Telma BURK PROCEDURE/MINOR SURGICAL OR DERABLES Edited Result - Final from Last 3 Months or Most Recently Relevant to Health Maintenance Insurance [address] [place] Care Teams Glass Rolling Machine Operator Relationship Specialty Start Date End Date Telma Adame PA PCP - General Family Medicine 08/18/16 Valarie Ng MD [address] [place] [address] Obstetrics & Gynecology 08/18/16
--- OUTSIDE RECORDS SUMMARY | 2024-08-26 09:50 | XMS_ITS | Encounter Summary ---
Author Organization [facility] Address [address] [place] [address] Care Team Providers Care Rigging Slinger Name Role Phone Tyler Pinedo MD Primary Care Provider [phone] Encounter Details Date Type Department Care Team (Late st Contact Info) Description 05/05/2022 Precision [employer]st Message Enc [facility] Multispecialty Care - [address] [place] [address] Felisha Jorge NP Rhodes Results Social History Tobacco Use Types Packs/Day Years [...] on file 11/2020 PHQ-2 Answer Date Recorded PHQ-2 Score - If the patient scores above 3, please move on to questions 3-9 1 04/07/2022 Comments No Sex and Gender Information Value Date Recorded Sex Assigned at Not on file Legal Sex Female 12:57 PM STUDIO DESIGNER Gender Identity Not on file Sexual Orientation Not on file 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 No / Unsure 04/07/2022 7:10 AM CDT documented as of this encounter Plan of Treatment Upcoming Encounters Date Type Department Care Team (Late st Contact Info) Description 09/08/2024 11:00 AM STUDIO DESIGNER Office Visit [facility] Physical Therapy [address] [place] [address] Diana Boyd, [place] [address] 09/22/2024 11:00 AM STUDIO DESIGNER Office Visit [facility] Physical Therapy [facility] [address] [address] Diana Boyd, [place] [address] 11/08/2024 8:20 AM CDT Office Visit [facility] Multispecialty Care - [place] [address] [address] [place] [address] Tyler Pinedo MD [address] [place] [address] documented as of this encounter Visit Diagnoses Not on filedocumented in this encounter Additional Health Concerns Assessment Noted Time PHQ-9 Depression Total Score: 1 03/25/20 11:50 AM CDT documented as of this encounter Care Teams Rigging Slinger Relationship Specialty Start Date End Date Tyler Pinedo MD [address] [place] [address] PCP - General INTERNAL MEDICINE 03/25/21 documented as of this encounter
--- OUTSIDE RECORDS SUMMARY | 2024-08-26 09:50 | XMS_ITS | Encounter Summary ---
Author Organization [facility] Address [address] [place] [address] Care Team Providers Care Pulmonary Care Nurse Name Role Phone Tylre Pinedo MD Primary Care Provider [phone] Encounter Details Date Type Department Care Team (Late st Contact Info) Description 11/18/2021 [employer] Message Enc [facility] Multispecialty Care - [address] [place] [address] [place] Provider mammogram Social History Tobacco Use Types Packs/Day Years [...] 3, please move on to questions 3-9 2 03/25/2021 Comments No Sex and Gender Information Value Date Recorded Sex Assigned at Not on file Legal Sex Female 12:57 PM LOAN SERVICE OFFICER Gender Identity Not on file Sexual Orientation Not on file 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 No / Unsure 11/05/2021 10:42 AM CDT documented as of this encounter Plan of Treatment Upcoming Encounters Date Type Department Care Team (Late st Contact Info) Description 09/08/2024 11:00 AM LOAN SERVICE OFFICER Office Visit [facility] Therapy [address] [place] [address] Diana Boyd, [place] [address] 09/22/2024 11:00 AM LOAN SERVICE OFFICER Office Visit [facility] Physical Therapy [facility] [address] [address] Diana [place] [address] 11/08/2024 8:20 AM CDT Office Visit [facility] Multispecialty Care [place] [address] [address] [place] [address] Tyler Pinedo MD [address] [place] [address] documented as of this encounter Visit Diagnoses Not on filedocumented in this encounter Additional Health Concerns Infection Onset Date Last Indicated Resolved Time COVID-19 Rule Out 02/24/2022 02/24/2022 02/24/2022 11:21 AM CDT COVID-19 Rule Out 02/24/2022 02/24/2022 02/25/2022 3:14 PM CDT Assessment Noted Time PHQ-9 Depression Total Score: 1 03/25/20 11:50 AM CDT documented as of this encounter Care Teams Pulmonary Care Nurse Relationship Specialty Start Date End Date Tyler Pinedo MD [address] [place] [address] PCP - General INTERNAL MEDICINE 03/25/21 documented as of this encounter
--- OUTSIDE RECORDS SUMMARY | 2024-08-26 09:50 | XMS_ITS | Clinical Summary ---
Author Organization [facility] [employer] Address [address] [facility] [place] [address] Care Team Providers Care Solar Energy System Installer Name Role Phone Phoebe Mcclelland MD Primary Care Provider [phone] Source Comments [facility],non-owned Affiliates and Associated Physician Practices is amultiple site organization consisting of ambulatory clinics and hospital sitesin [place], [place], [place] and [place]. This disclosure is being madepursuant to the Care Everywhere program and may not contain all information available regarding this patient. Last updated 18.[facility] Social History Tobacco Use Types Packs/Day Years Used Date Smoking Tobacco: Never Assessed Sex and Gender Information Value Date Recorded Sex Assigned at Not on file Gender Identity Not on file Sexual Orientation Not on file Plan of Treatment Health Maintenance Due Date Last Done Comments COLOGUARD (AGES 45-75) - COL ON CA SCREENING 1965 COLON MONITORING 1964 COLONOSCOPY - COLON CA SCREENING 1964 CT COLONOGRAPHY - COLON CA SCREENING 1965 Colorectal Cancer Screening 1964 FIT - COLON CA SCREENING 1964 FLEX SIG - COLON CA SCREENING 1964 LIPID TESTING 1965 MAMMOGRAM 1965 PAP SMEAR 1964 HIV SCREENING 1979 HEPATITIS C SCREENING 08/09/1982 DTAP/TDAP/TD VACCINES (1 - Tdap) 1983 PNEUMOCOCCAL VACCINE 50+ (1 of 1 - PCV) 2014 ZOSTER VACCINE (1 of 2) 2014 COVID-19 VACCINE (3 - 2023-2 5 season) 2024 10/08/2020, 08/29/2020 INFLUENZA VACCINE (#1) 2024 DEPRESSION SCREENING 07/19/2024 Respiratory Syncytial Virus (RSV) Vaccine Pt: or over 60 yrs (1 - 1-dose 75+ series) 2039 HEPATITIS B VACCINE Aged Out No longe r eligible based on patient's age to complete this topic HIB VACCINE Aged Out No longer eligi ble based on patient's age to complete this topic HPV VACCINE Aged Out No longer eligi ble based on patient's age to complete this topic MENINGOCOCCAL (Group B) VACCINE Aged Out No longer eligible b ased on patient's age to complete this topic MENINGOCOCCAL VACCINE Aged Out No [facility] eligible based on patient's age to complete this topic PNEUMOCOCCAL VACCINE Aged Out No long er eligible based on patient's age to complete this topic Care Teams Solar Energy System Installer Relationship Specialty Start Date End Date Phoebe Mcclelland MD [address] [place] [address] PCP - General 06/03/21
--- OUTSIDE RECORDS SUMMARY | 2024-08-26 09:50 | XMS_ITS | Encounter Summary ---
Author Organization [facility] Address [address] [place] [address] Care Team Providers Care Registered Dental Hygienist Name Role Phone Tyler Pinedo MD Primary Care Provider [phone] Encounter Details Date Type Department Care Team (Late Contact Info) Description 10/06/2023 Netskopet Message Enc [facility] Medical [facility] Orthopedic & Sports Medicine - [place] [address] [place] [address] Hussain Davila MD [address] [place] [address] Walker after surgery Social History Tobacco Use Types Packs/Day Years [...] Date Recorded Patient Health Questionnaire-2 Score 0 08/20/2023 Comments No Sex and Gender Information Value Date Recorded Sex Assigned at Not on file Legal Sex Female 12:57 PM COMMERCIAL DIVER Gender Identity Not on file Sexual Orientation Not on file 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 file documented as of this encounter Plan of Treatment Upcoming Encounters Date Type Department Care Team (Late st Contact Info) Description 09/08/2024 11:00 AM COMMERCIAL DIVER Office Visit [facility] Physical Therapy [address] [place] [address] Diana Boyd, [place] [address] 09/22/2024 11:00 AM COMMERCIAL DIVER Office Visit [facility] Physical Therapy [address] [place] [address] [place] [address] 11/08/2024 8:20 AM CDT Office Visit [facility] Medical Group Multispecialty Care - [place] [address] [address] [place] [address] Tyler Pinedo MD [facility] [address] documented as of this encounter Visit Diagnoses Not on filedocumented in this encounter Additional Health Concerns Assessment Noted Time PHQ-9 Depression Total Score: 6 06/29/20 23 4:56 PM COMMERCIAL DIVER documented as of this encounter Care Teams Registered Dental Hygienist Relationship Specialty Start Date End Date Tyler Pinedo MD [address] [place] [address] PCP - General INTERNAL MEDICINE 03/25/21 documented as of this encounter
--- OUTSIDE RECORDS SUMMARY | 2024-08-26 09:50 | XMS_ITS | Referral Summary ---
Author Organization [facility] Address [address] [facility] [place] [address] Care Team Providers Care Process Improvement Manager Name Role Phone Phoebe Mcclelland MD Primary Care Provider [phone] Source Comments [facility],non-owned Affiliates and Associated Physician Practices is amultiple site organization consisting of ambulatory clinics and hospital sitesin [place], [place], [place] and [place]. This disclosure is being madepursuant to the Care Everywhere program and may not contain all information available regarding this patient. Last updated 18.[facility] Social History Tobacco Use Types Packs/Day Years Used Date Smoking Tobacco: Never Assessed Sex and Gender Information Value Date Recorded Sex Assigned at Not on file Gender Identity Not on file Sexual Orientation Not on file Plan of Treatment Not on file Administered Medications Care Teams Process Improvement Manager Relationship Specialty Start Date End Date Phoebe Mcclelland MD [address] [place] [address] PCP - General 06/03/21
--- OUTSIDE RECORDS SUMMARY | 2024-08-26 09:50 | XMS_ITS ---
Author Organization [facility] Address [address] [facility] [address], [place] [address] Care Team Providers Care Gore Inserter Name Role Phone Khris AUSTIN, Tyler Primary Care Provider UnavailAlise Perkins [phone] Allergies Allergen (clinical drug ingredient) Drug/Non Drug Allergy documented on EMR Reaction Allergy Type Onset Date Status folic acid Folic Acid Unknown Drug Allergy Activ e methotrexate Methotrexate Unknown Drug Allergy A ctive Penicillin Unknown Drug Allergy Active rosuvastatin Rosuvastatin Unknown Drug Allergy A ctive REASON FOR VISIT RA Encounters Encounter Location Date Provider Diagnosis [facility] [address] [facility] [address] [place] [address] 01/26/2024 Alise Mir Plan Of Treatment No Information Progress Notes * Rebekah CONTRERASDOB:1965 (59 yo F)Acc No.[id number]:01/26/2024 Progress Notes Patient: Rebekah STARK Provider: Lei MIR MD :1965 A ge:58 Y S ex:Female Date:01/26/2024 [facility] Pcp:Tyler Pinedo MD Subjective: * Chief Complaints: * 1 . RA. * HPI: R heumatoid arthritis: saw Dr. Mcdonald, off humira since 201910/11/2023, ESR normal, CRP 0.31 (<0.29), CBC normal, BMP normal. * Medical History: R heumatoid arthritis, hypertension, hyperlipidemia, anxiety, depression, kidney stones, essential tremor, fatty liver. * Surgical History: h ysterectomy, cholecystectomy, C section, uterine fibroid removal knee surgery, cardiac cath, tonsillectomy . * Allergies: R osuvastatin, Penicillin, Folic Acid, Methotrexate. Objective: * Vitals: Assessment: Plan: * Treatment: * Billing Information: * Visit Code: * Procedure Codes: * Electronic signature of Alise Mir MD on 08/26/2024 at 09:49 AM INSTRUCTOR PHYSICAL EDUCATION Sign off status: Pending * Provider: Lei MIR MD Date: 0 01/26/2024 Generated for Will smiley/Eliseo/Veronicaitting on: 0 08/26/2024 09:49 AM INSTRUCTOR PHYSICAL EDUCATION History and Physical Notes * HPI (History of Present Illness) Category Sub-Category Detail Notes Category Not es Rheumatoid arthritis saw Dr. Mcdonald, off humira since 201910/11/2023, ESR normal, CRP 0.31 (<0.29), CBC normal, BMP normal
--- OUTSIDE RECORDS SUMMARY | 2024-08-26 09:50 | XMS_ITS | Encounter Summary ---
Author Organization [facility] Address [facility] [place] [address] Care Team Providers Care Area Operations Manager Name Role Phone Tyler Pinedo MD Primary Care Provider [phone] Encounter Details Date Type Department Care Team (Latest Contact Info) Description 10/22/2021 Parade Techn[employer] Message Enc [facility] Medical Group Multispecialty Care - [place] [address] [address] [place] [address] Tyler Pinedo MD [address] [place] [address] [address] [place], [place] [id number] Referral to neurology Social History Tobacco Use Types Packs/Day Years [...] on file Legal Sex Female 12:57 PM LIVESTOCK BREEDER Gender Identity Not on file Sexual Orientation Not on file 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 file documented as of this encounter Plan of Treatment Upcoming Encounters Date Type Department Care Team (Late st Contact Info) Description 09/08/2024 11:00 AM LIVESTOCK BREEDER Office Visit [facility] Physical Therapy [address] [place] [address] Diana Boyd, [place] [address] 09/22/2024 11:00 AM LIVESTOCK BREEDER Office Visit [facility] Physical Therapy [address] [place] [address] Diana Boyd, [place] [address] 11/08/2024 8:20 AM CDT Office Visit [facility] Medical Group Multispecialty Care - [place] [address] [address] [place] [address] Tyler Pinedo MD [address] [place] [address] documented as of this encounter Visit Diagnoses Not on filedocumented in this encounter Additional Health Concerns Infection Onset Date Last Indicated Resolved Time COVID-19 Rule Out 02/24/2022 02/24/2022 02/24/2022 11:21 AM CDT COVID-19 Rule Out 02/24/2022 02/24/2022 02/25/2022 3:14 PM CDT Assessment Noted Time PHQ-9 Depression Total Score: 1 03/25/20 11:50 AM CDT documented as of this encounter Care Teams Area Operations Manager Relationship Specialty Start Date End Date Tyler Pinedo MD [address] [place] [address] PCP - General INTERNAL MEDICINE 03/25/21 documented as of this encounter
--- OUTSIDE RECORDS SUMMARY | 2024-08-26 09:50 | XMS_ITS | Encounter Summary ---
Author Organization [facility] Address [facility] [place] [address] Care Team Providers Care Blood Bank Calendar Control Clerk Name Role Phone Tyler Pinedo MD Primary Care Provider [phone] Encounter Details Date Type Department Care Team (Late st Contact Info) Description 07/07/2021 People Powert Message Enc [facility] Medical Group Multispecialty Care - [place] [address] [place] [address] [address] [place] [address] [place] [address] [place] [address] [address] [place], [place] [phone] chest CT Social History Tobacco Use Types Packs/Day Years [...] file Legal Sex Female 12:57 PM COMMERCIAL GLAZIER Gender Identity Not on file Sexual Orientation Not on file 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 No / Unsure 07/07/2021 10:44 AM COMMERCIAL GLAZIER documented as of this encounter Plan of Treatment Upcoming Encounters Date Type Department Care Team (Late st Contact Info) Description 09/08/2024 11:00 AM COMMERCIAL GLAZIER Office Visit [facility] Physical Therapy [address] [place] [address] Diana Boyd, [place] [address] 09/22/2024 11:00 AM COMMERCIAL GLAZIER Office Visit [facility] Physical Therapy [address] [place] [address] Diana Boyd[place] [address] 11/08/2024 8:20 AM CDT Office Visit [facility] Medical Group Multispecialty Care - [place] [address] [address] [place] [address] Tyler Pinedo MD [address] [place] [address] documented as of this encounter Visit Diagnoses Not on filedocumented in this encounter Additional Health Concerns Infection Onset Date Last Indicated Resolved Time COVID-19 Rule Out 02/24/2022 02/24/2022 02/24/2022 11:21 AM CDT COVID-19 Rule Out 02/24/2022 02/24/2022 02/25/2022 3:14 PM CDT Assessment Noted Time PHQ-9 Depression Total Score: 1 03/25/20 21 11:50 AM CDT documented as of this encounter Care Teams Blood Bank Calendar Control Clerk Relationship Specialty Start Date End Date Tyler Pinedo MD [address] [place] [address] PCP - General INTERNAL MEDICINE 03/25/21 documented as of this encounter
--- OUTSIDE RECORDS SUMMARY | 2024-08-26 09:50 | XMS_ITS | Encounter Summary ---
Author Organization [facility] Address [address] [place] [address] Care Team Providers Care Groover And Turner Name Role Phone Telma Adame Primary Care Pr ovider Reason for Visit * Diagnostic Imaging (Routine) - Closed Specialty Diagnoses / Procedures Referred By Heena t Referred To Contact Procedures Breast Imaging Screening Outside Reference Sruthi Boles NP [address] [facility] [id number] [place] [address] Phone: tel: fax: Referral ID Status Reason Start Date Expiration Date Visits Re quested Visits Authorized [id number] Closed 01/01/2023 01/31/2024 1 1 Encounter Details Date Type Department Care Team (Late st Contact Info) Description 11/19/2020 Hospital Encounter [facility] [address] [place] [address] Social History Tobacco Use Types Packs/Day Years [...] more drinks on one occasion? 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 There will be no report generated by a [facility] Radiologist. Narrative [facility] - 01/01/2023 11:33 AM CDT EXAMINATION: Images For Reference Purposes Only us Sruthi Boles TIME CLOCK INSPECTOR IMG MAMMO PROCEDURES Final Result [facility] documented in this encounter Visit Diagnoses Not on filedocumented in this encounter Care Teams Groover And Turner Relationship Specialty Start Date End Date Telma Adame PA PCP - General Physician Apparel Pattern Maker 04/09/17 05/09/21 documented as of this encounter
--- OUTSIDE RECORDS SUMMARY | 2024-08-26 09:50 | XMS_ITS | Encounter Summary ---
Author Organization [facility] Address [facility] [place] [address] Care Team Providers Care Secretary Administrative Assistant Name Role Phone Tyler Pinedo MD Primary Care Provider [phone] Encounter Details Date Type Department Care Team (Latest Contact Info) Description 07/09/2022 Mission[employer]t Message Enc [facility] Medical Group Multispecialty Care - [place] [address] [place] [address] [address] [place], [place] [phone] [place] [address] [place] [address] 157 [place], [place] [phone] CT chest results Social History Tobacco Use Types Packs/Day [...] on file Legal Sex Female 12:57 PM CONTINUOUS IMPROVEMENT SPECIALIST Gender Identity Not on file Sexual Orientation Not on file 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 file documented as of this encounter Plan of Treatment Upcoming Encounters Date Type Department Care Team (Late st Contact Info) Description 09/08/2024 11:00 AM CONTINUOUS IMPROVEMENT SPECIALIST Office Visit [facility] Physical Therapy [address] [place] [address] Diana Boyd, [place] [address] 09/22/2024 11:00 AM CONTINUOUS IMPROVEMENT SPECIALIST Office Visit [facility] Physical Therapy [address] [place] [address] Diana Boyd, [place] [address] 11/08/2024 8:20 AM CDT Office Visit [facility] Multispecialty Care - [place] [address] [address] [place] [address] Tyler Pinedo MD [address] [place] [address] documented as of this encounter Visit Diagnoses Not on filedocumented in this encounter Additional Health Concerns Assessment Noted Time PHQ-9 Depression Total Score: 1 03/25/20 11:50 AM CDT documented as of this encounter Care Teams Secretary Administrative Assistant Relationship Specialty Start Date End Date Tyler Pinedo MD [address] [place] [address] PCP - General INTERNAL MEDICINE 03/25/21 documented as of this encounter
--- OUTSIDE RECORDS SUMMARY | 2024-08-26 09:50 | XMS_ITS | Encounter Summary ---
Author Organization [facility] Address [facility] [place] [address] Care Team Providers Care Fixture Maker Name Role Phone Tyler Pinedo MD Primary Care Provider [phone] Encounter Details Date Type Department Care Team (Late st Contact Info) Description 04/09/2021 Soliot Message Enc [facility] Medical Group Multispecialty Care - [place] [address] [place] [address] [address] [place] [address] [place] [address] [place] [address] 157 [place], [place] [phone] Test Results Social History Tobacco Use Types Packs/Day [...] on to questions 3-9 2 03/25/2021 Comments Unknown Sex and Gender Information Value Date Recorded Sex Assigned at Not on file Legal Sex Female 12:57 PM CONTROL SUPERVISOR Gender Identity Not on file Sexual Orientation Not on file 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 No / Unsure 04/07/2021 7:38 PM CDT documented as of this encounter Plan of Treatment Upcoming Encounters Date Type Department Care Team (Late st Contact Info) Description 09/08/2024 11:00 AM CONTROL SUPERVISOR Office Visit [facility] Physical Therapy [address] [place] [address] Diana Boyd, [place] [address] 09/22/2024 11:00 AM CONTROL SUPERVISOR Office Visit [facility] Physical Therapy [address] [place] [address] Diana Boyd, [place] [address] 11/08/2024 8:20 AM CDT Office Visit [facility] Medical Group Multispecialty Care - [place] [address] [address] [place] [address] Tyler Pinedo MD [address] [place] [address] documented as of this encounter Visit Diagnoses Not on filedocumented in this encounter Additional Health Concerns Infection Onset Date Last Indicated Resolved Time COVID-19 Rule Out 02/24/2022 02/24/2022 02/24/2022 11:21 AM CDT COVID-19 Rule Out 02/24/2022 02/24/2022 02/25/2022 3:14 PM CDT Assessment Noted Time PHQ-9 Depression Total Score: 1 03/25/20 21 11:50 AM CDT documented as of this encounter Care Teams Fixture Maker Relationship Specialty Start Date End Date Tyler Pinedo MD [address] [place] [address] PCP - General INTERNAL MEDICINE 03/25/21 documented as of this encounter
== END 2024-08-26 09:46 | disposition home or self-care (01) ==
LOC: ANHIMG 09:47
PROVIDERS: PCP Internal Medicine; Visit Provider Nurse Practitioner
DX: Z12.31 Encounter for screening mammogram for malignant neoplasm of breast (principal)
CPT/HCPCS: 77063; 77067

== ENCOUNTER 2024-11-02 15:26 | Outpatient (CLI) | payer OTHER, SELFPAY ==
--- NOTE | ~2024-11-02 | MR_ITS ---
MRI of the brain Clinical History: Asymmetric sensorineural hearing loss Technique: Axial and sagittal T1-weighted images were acquired. These were followed by axial T2-weigh charisma, diffusion weighted, gradient, and FLAIR images. Thin cut axial and coronal T1-weighted and T2-we ighted images were acquired through the internal auditory canals. Following intravenous administratio n of 18 cc MultiHance gadolinium, T1-weighted fat-sat imaging was performed through the brain in the axial and coronal planes. Thin cut T1-weighted postcontrast imaging was performed through the interna l auditory canals in the axial and coronal planes. COMPARISON: 08/17/2020 Findings: No acute infarct, intracranial hemorrhage, or mass lesion identified. There are minimal chr onic white matter changes in the periventricular white matter bilaterally. Initial subarachnoid spaces are unremarkable. Orbits are unremarkable. Paranasal sinuses and mastoid air cells are essentially clear, aside from small retention cysts or polyps in the maxillary sinus. M ajor intracranial flow voids are intact. Sagittal midline structures are intact. No abnormal mass lesion identified at the cerebellopontine angle regions or internal auditory canals. No abnormal postcontrast enhancement identified. IMPRESSION: No acute infarct, intracranial hemorrhage or mass lesion. Minimal chronic microvascular ischemic change. Reviewed, dictated and finalized at location M.
== END 2024-11-02 15:27 | disposition home or self-care (01) ==
PROVIDERS: PCP Internal Medicine; Visit Provider Otolaryngology
DX: H90.3 Sensorineural hearing loss, bilateral (principal); I67.82 Cerebral ischemia; H93.11 Tinnitus, right ear; H61.22 Impacted cerumen, left ear
CPT/HCPCS: 70553; A9577